=== PATIENT | male | born 1935 | race Asian ===

== ENCOUNTER 2023-09-14 23:25 | Inpatient (IN) | payer MEDICARE, OTHER, SELFPAY ==
[2023-09-02 20:52] VITALS: BMI 21.4
--- NOTE | 2023-09-14 23:26 | ED.GENADULT ---
HPI - General Adult General Chief complaint: Shortness of Breath/Dyspnea Stated complaint: dyspnea Time Seen by Provider: 09/14/23 23:26 History of Present Illness HPI narrative: 88-year-old gentleman discharged from [facility] after admission right hip fracture, hyponatremia with a history of pulmonary fibrosis aspergilloma, he is anticoagulated for his atrial fibrillation on Coumadin, hypertension, diabetes, prostate cancer he is currently in a [facility] for post hip fracture rehabilitation and presents complaining of shortness of breath. He has a productive cough with purulent sputum with hemoptysis. He is not complaining of palpitations. He has no abdominal pain has not been vomiting. Notes that his right hip post surgery is feeling well and does not complain of significant lower extremity edema Related Data Home Medications Medication Instructions Recorded Confirmed latanoprost 0.005 % eye drops 1 drp EYE-BOTH ONCE PM 09/02/23 09/02/23 metformin 1,000 mg tablet 1,000 mg PO BID 09/02/23 09/02/23 prednisone 10 mg tablet 10 mg PO DAILY 09/02/23 09/02/23 voriconazole 200 mg tablet 200 mg PO BID 09/02/23 09/02/23 Previous Rx's Medication Instructions Recorded acetaminophen 325 mg tablet 650 mg (2 x 325 mg) PO Q6H PRN 09/08/23 Fever/Mild Pain (1-3) #60 tabs apixaban 5 mg tablet (Eliquis) 5 mg PO BID #60 tabs 09/08/23 benzonatate 100 mg capsule 100 mg PO TID PRN Cough #20 caps 09/08/23 bisacodyl 5 mg tablet,delayed 5 mg PO BID PRN Constipation #1 tab 09/08/23 release docusate sodium 100 mg capsule 100 mg PO BID #14 caps 09/08/23 magnesium hydroxide 400 mg/5 mL 30 ml PO DAILY PRN Constipation 09/08/23 oral suspension (Milk of Magnesia) #90 mL polyethylene glycol 3350 17 gram 17 gm PO DAILY #14 ea 09/08/23 oral powder packet sodium chloride 1,000 mg soluble 1,000 mg PO TIDWM #90 tabs 09/08/23 tablet Allergies Allergy/AdvReac Type Severity Reaction Status Date / Time Sulfa (Sulfonamide Allergy Unknown Verified 09/02/23 21:20 Antibiotics) Review of Systems Review of Systems Narrative: Pertinent positive and negative findings as per HPI Patient History Medical History Hypertension Prostate cancer Aspergilloma Pulmonary fibrosis DM II (diabetes mellitus, type II), controlled Fracture of femoral neck, right, closed Social History household members: spouse Smoking Status: Never smoker Smoking Status: Never smoker alcohol intake frequency: 0-2 drinks per day Substance Use Type: does not use Exam Initial Vital Signs Initial Vital Signs: Vital Signs Temperature 99.1 F 09/14/23 23:33 Pulse Rate 108 H 09/14/23 23:33 Respiratory Rate 24 09/14/23 23:33 Blood Pressure 174/84 H 09/14/23 23:33 Pulse Oximetry 95 09/14/23 23:33 Oxygen Delivery Method Nasal Cannula 09/14/23 23:33 Oxygen Flow Rate 2 09/14/23 23:33 General: Frail-appearing gentleman, cough productive of bloody sputum, pale and appears acutely ill HEENT: Moist mucous membranes, normal sclera with reactive pupils, Neck: No JVD, supple Respiratory: Lungs with significant rales in all lung umaña and rhonchi worse in the right mid axillary line Cardiac: Irregular with no murmurs Abdomen: Soft, nontender, good bowel tones, no flank pain Skin: Pale, reasonable peripheral perfusion, no obvious rashes Neurologic: Grossly neurologically intact with no obvious asymmetries or abnormalities Extremities: Right hip surgical dressing in place. No significant swelling or erythema. Psych: Cooperative, appropriate insight and affect Course Orders Ordered: ED Orders 09/14/23 23:35 CT angio chest PE protocol Stat 09/15/23 00:10 Sputum Culture Stat 09/15/23 00:21 Respiratory Panel (Film Array) Stat 09/15/23 01:20 Urinalysis and Microscopic Stat 09/15/23 02:15 VBG [Venous Blood Gas] Stat Vancomycin HCl (Vancomycin) 1,000 mg in 200 mls @ 200 mls/hr IV Q24H SAVANAH Discontinued Medications Albuterol (Albuterol 2.5 Mg/3 Ml Neb (Adult)) 2.5 mg INH NOW ONE Stop: 09/14/23 23:35 Last Admin: 01/01/24 23:46 Dose: 2.5 mg Documented By: GALILEO Furosemide (Furosemide 40 Mg/4 Ml Vial) 40 mg IV NOW ONE Stop: 09/15/23 03:49 Last Admin: 09/15/23 03:54 Dose: 40 mg Documented By: BHAVANA Cefepime HCl 2 gm/ Sodium (Chloride) 100 mls @ 200 mls/hr IV NOW ONE Stop: 09/15/23 02:14 Last Infusion: 09/15/23 03:09 Dose: Infused Documented By: Admin: 09/15/23 02:29 Dose: 200 mls/hr Documented By: INES Vancomycin HCl/Dextrose (Vancomycin) 1,500 mg in 300 mls @ 200 mls/hr IV NOW ONE Stop: 09/15/23 04:29 Last Admin: 09/15/23 03:10 Dose: 200 mls/hr Documented By: BHAVANA Vancomycin HCl (Vancomycin Per Pharmacy) 1 request MISC NOW ONE Stop: 09/15/23 02:15 Vital Signs Vital signs: Vital Signs - 8 hr 09/14/23 23:33 09/14/23 23:33 09/14/23 23:34 Temperature 99.1 F Pulse Rate 108 H 104 H Respiratory Rate 24 Blood Pressure 174/84 H 174/84 H Pulse Oximetry 95 94 Oxygen Delivery Method Nasal Cannula Nasal Cannula Oxygen Flow Rate 2 3 09/14/23 23:34 09/14/23 23:46 09/15/23 00:00 Temperature Pulse Rate 98 H Respiratory Rate 33 H Blood Pressure 166/92 H Pulse Oximetry 94 92 Oxygen Delivery Method Nasal Cannula Nasal Cannula Oxygen Flow Rate 3 3 09/15/23 00:00 09/15/23 00:30 09/15/23 00:30 Temperature Pulse Rate 101 H 94 H Respiratory Rate 30 H 27 H Blood Pressure 152/80 H Pulse Oximetry 94 97 Oxygen Delivery Method Nasal Cannula Nasal Cannula Oxygen Flow Rate 3 3 09/15/23 01:05 09/15/23 01:06 09/15/23 01:06 Temperature Pulse Rate 90 92 H Respiratory Rate 26 H 28 H Blood Pressure 153/76 H Pulse Oximetry 97 97 Oxygen Delivery Method Nasal Cannula Nasal Cannula Oxygen Flow Rate 3 3 09/15/23 01:30 09/15/23 01:30 Temperature Pulse Rate 96 H Respiratory Rate 28 H Blood Pressure 158/83 H Pulse Oximetry 94 Oxygen Delivery Method Nasal Cannula Oxygen Flow Rate 3 Medical Decision Making Lab Data 09/14/23 00:15 09/14/23 00:15 Labs: Lab Results 09/14/23 09/14/23 09/15/23 Range/Units 00:15 23:25 01:20 WBC 13.4 H (4.5-11.0) X10^3/uL RBC 3.25 L (4.5-5.9) X10^6/uL Hgb 9.3 L (13.5-17.5) g/dL Hct 27.7 L (41-53) % MCV 85.4 (80-100) fL MCH 28.6 (26-34) PG MCHC 33.4 (30-36) % RDW 16.3 H (11.6-14.8) % Plt Count 454 H (150-400) X10^3/uL Neut % (Auto) 79.3 H (50-75) % Lymph % (Auto) 13.8 L (25-40) % [place] % (Auto) 5.3 (3-14) % Eos % (Auto) 1.3 L (2-4) % Baso % (Auto) 0.3 (0-2) % Neut # (Auto) 91570 H (0577-7465) /uL Lymph # (Auto) 1800 (6021-5042) /uL [place] # (Auto) 700 (0-900) /uL Eos # (Auto) 200 (0-450) /uL Baso # (Auto) 0 (0-100) /uL VBG pH (7.33-7.43) VBG pCO2 (45-50) mmHg VBG pO2 (35-45) mmHg VBG HCO3 (24-28) mmol/L VBG Total CO2 (24-29) mmol/L VBG O2 Saturation (70-75) % VBG Base Excess (0-4) mmol/L FiO2 Sodium 132 L (137-145) mmol/L Potassium 3.8 (3.4-5.1) mmol/L Chloride 100 (98-107) mmol/L Carbon Dioxide 23 (22-32) mmol/L BUN 20 (9-20) mg/dL Creatinine 0.76 (0.66-1.25) mg/dL Estimated GFR > 60 (>60) mL/min BUN/Creatinine Ratio 26.3 H (6-22) Glucose 188 H (80-110) mg/dL Lactate 1.8 (0.7-2.1) mmol/L Calcium 8.4 (8.4-10.2) mg/dL Magnesium 1.8 (1.6-2.3) mg/dL Total Bilirubin 0.6 (0.2-1.3) mg/dL ALT 26 (<50) IU/L Alkaline Phosphatase 170 H (38-126) U/L Troponin I < 0.012 (0.01-0.034) ng/mL NT-Pro-B Natriuret Pep 3860 H (<450) pg/mL Total Protein 6.7 (6.3-8.2) g/dL Albumin 3.2 L (3.5-5.0) g/dL Globulin 3.5 (1.7-4.1) g/dL Albumin/Globulin Ratio 0.9 L (1.0-2.8) Procalcitonin 0.06 (<0.5) ng/mL Urine Color Yellow Urine Appearance Clear Urine pH 5.5 (4.5-8.0) Ur Specific [place] >=1.030 H (1.000-1.035) Urine Protein 2+ H (Negative) Urine Glucose (UA) Negative (Negative) g/dL Urine Ketones Negative (NEGATIVE) Urine Occult Blood Trace-intact (Negative) Urine Nitrate Negative (Negative) Urine Bilirubin Negative (NEGATIVE) Urine Urobilinogen 0.2 (0.2) E.U./dL Ur Leukocyte Esterase Negative (NEGATIVE) Urine RBC 0-1/hpf D (0-5/HPF) Urine WBC None seen (0-5/HPF) Ur Squamous Epith Cells None seen (0-5/HPF) Urine Bacteria None seen (None) Ur Culture Indicated? Cult not indicated Chlamy pneumoniae PCR Not detected (Not Detect) Adenovirus (PCR) Not detected (Not Detect) B.parapertussis DNA PCR Not detected (Not Detecte) Coronavirus OC43 (PCR) Not detected (Not Detect) Coronavirus HKU1 (PCR) Not detected (Not Detect) Coronavirus 229E (PCR) Not detected (Not Detect) SARS-CoV-2 (PCR) Not detected (Not Detecte) Coronavirus NL63 (PCR) Not detected (Not Detect) Human Metapneumovir PCR Not detected (Not Detect) Influenza Type A (PCR) Not detected (Not Detect) Influenza Type B (PCR) Not detected (Not Detect) M. pneumoniae (PCR) Not detected (Not Detect) Parainfluenza 1 (PCR) Not detected (Not Detect) Parainfluenza 2 (PCR) Not detected (Not Detect) Parainfluenza 3 (PCR) Not detected (Not Detect) Parainfluenza 4 (PCR) Not detected (Not Detect) RSV (PCR) Not detected (Not Detect) Entero/Rhino (PCR) Not detected (Not Detect) 09/15/23 Range/Units 02:15 WBC (4.5-11.0) X10^3/uL RBC (4.5-5.9) X10^6/uL Hgb (13.5-17.5) g/dL Hct (41-53) % MCV (80-100) fL MCH (26-34) PG MCHC (30-36) % RDW (11.6-14.8) % Plt Count (150-400) X10^3/uL Neut % (Auto) (50-75) % Lymph % (Auto) (25-40) % [place] % (Auto) (3-14) % Eos % (Auto) (2-4) % Baso % (Auto) (0-2) % Neut # (Auto) (3898-8219) /uL Lymph # (Auto) (0135-4438) /uL [place] # (Auto) (0-900) /uL Eos # (Auto) (0-450) /uL Baso # (Auto) (0-100) /uL VBG pH 7.42 (7.33-7.43) VBG pCO2 33.1 L (45-50) mmHg VBG pO2 38 (35-45) mmHg VBG HCO3 21 L (24-28) mmol/L VBG Total CO2 22 L (24-29) mmol/L VBG O2 Saturation 73 (70-75) % VBG Base Excess -3.0 L (0-4) mmol/L FiO2 32 Sodium (137-145) mmol/L Potassium (3.4-5.1) mmol/L Chloride (98-107) mmol/L Carbon Dioxide (22-32) mmol/L BUN (9-20) mg/dL Creatinine (0.66-1.25) mg/dL Estimated GFR (>60) mL/min BUN/Creatinine Ratio (6-22) Glucose (80-110) mg/dL Lactate (0.7-2.1) mmol/L Calcium (8.4-10.2) mg/dL Magnesium (1.6-2.3) mg/dL Total Bilirubin (0.2-1.3) mg/dL ALT (<50) IU/L Alkaline Phosphatase (38-126) U/L Troponin I (0.01-0.034) ng/mL NT-Pro-B Natriuret Pep (<450) pg/mL Total Protein (6.3-8.2) g/dL Albumin (3.5-5.0) g/dL Globulin (1.7-4.1) g/dL Albumin/Globulin Ratio (1.0-2.8) Procalcitonin (<0.5) ng/mL Urine Color Urine Appearance Urine pH (4.5-8.0) Ur Specific [place] (1.000-1.035) Urine Protein (Negative) Urine Glucose (UA) (Negative) g/dL Urine Ketones (NEGATIVE) Urine Occult Blood (Negative) Urine Nitrate (Negative) Urine Bilirubin (NEGATIVE) Urine Urobilinogen (0.2) E.U./dL Ur Leukocyte Esterase (NEGATIVE) Urine RBC (0-5/HPF) Urine WBC (0-5/HPF) Ur Squamous Epith Cells (0-5/HPF) Urine Bacteria (None) Ur Culture Indicated? Chlamy pneumoniae PCR (Not Detect) Adenovirus (PCR) (Not Detect) B.parapertussis DNA PCR (Not Detecte) Coronavirus OC43 (PCR) (Not Detect) Coronavirus HKU1 (PCR) (Not Detect) Coronavirus 229E (PCR) (Not Detect) SARS-CoV-2 (PCR) (Not Detecte) Coronavirus NL63 (PCR) (Not Detect) Human Metapneumovir PCR (Not Detect) Influenza Type A (PCR) (Not Detect) Influenza Type B (PCR) (Not Detect) M. pneumoniae (PCR) (Not Detect) Parainfluenza 1 (PCR) (Not Detect) Parainfluenza 2 (PCR) (Not Detect) Parainfluenza 3 (PCR) (Not Detect) Parainfluenza 4 (PCR) (Not Detect) RSV (PCR) (Not Detect) Entero/Rhino (PCR) (Not Detect) MDM Narrative Medical decision making narrative: CC: Hemoptysis, fever, dyspnea Complicating co-morbidities: Right hip fracture post surgical repair September 02. Currently [facility]. Anticoagulated with apixaban for chronic atrial fibrillation. He was supratherapeutic with warfarin and this has been discontinued Data collected from: patient Social determinants of health that may influence the patients condition: Recent hospitalization, surgery and currently in a penitentiary facility Medical records reviewed: Discharge summary from hospitalization from 09/04/2012 25 is reviewed Differential considered: Pneumonia, pneumothorax, pulmonary embolism, acute coronary syndrome Exam documented above, pertinent findings include: Frail and ill but not acutely toxic gentleman, rales i throughout all lung umaña consistent with his known pulmonary fibrosis rhonchi in right lung umaña. No JVD, no lower extremity edema, right hip surgical site is clean and dry Lab Test results independently reviewed as above. Pertinent findings: CBC is notable for a leukocytosis at 13.4 with 79% neutrophils. Slight drop in hematocrit with hemoglobin at 9.3 and hematocrit 27.7. Discharge H&H on the 03/03 was 10.2 and 30.3 Chemistries show normal renal function BNP is slightly elevated at 3860 Urine is unremarkable Serologies shows no viral pathogen Sputum g stain shows occasional white cells Gram-positive cocci +1 and Gram-negative rods +1 sputum culture is pending lactic acid 1.8 Venous blood gas shows pH of 7.415 and a CO2 of 33 bicarb is 21 Independently reviewed EKG: Atrial fibrillation at a rate of 93, PVCs, no acute ST abnormalities to suggest ischemia Imaging studies independently reviewed: CT angiogram done indicates no pulmonary embolism, confirms pulmonary fibrosis with concern for developing bacterial infiltrate in the right upper lobe. Consultations: Discussed with , hospitalist Treatments: Because he is recently been hospitalized and is a [facility]it[facility]iary facility he started on cefepime and vancomycin for presumed hospital-acquired pneumonia. He will be given 40 mg of Lasix with presumed volume overload secondary to mild congestive heart failure. We will discuss continuation of his anti fungal medications with the admitting hospitalist. Discussion: 88-year-old gentleman with recent hip surgery currently to [facility]it[facility] facility now with cough hypoxia and hemoptysis. CT angiogram does not show pulmonary embolism but does show mild interstitial fullness, honeycombing consistent with his pulmonary fibrosis and developing right upper lobe pneumonia. He is started on cefepime and vancomycin, Lasix is given. Surgical site is healing nicely. He is requiring 3 L of oxygen at this point, sputum has been cultured he will be admitted to the hospitalist service. At this point I do not think that his pulmonary requirements will progress to the point that he will need BiPAP or intubation within the next 12 hours and floor admission will be appropriate. Additional Information: Severe Sepsis Criteria [ x ] bacterial source of infection suspected and documented [ ] 2 SIRS Criteria met [ x ] HR >90 [ x ] RR >20 [ ] fever or hypothermia [ x ] leukocytosis/leukopenia/bandemia [ ] Evidence of at least 1 organ system dysfunction [ ] Lactate > 2 [ ] BP < 90 or MAP <65, >40mm decrease from normal baseline [ ] Creat > 2.0 [ ] T. Bili > 2.0 [ ] platelet count < 100k [ ] altered mental status [ ] mechanical ventilation [ ] provider documentation of severe sepsis Severe Sepsis Determination. the patient has been screened and [ ] DOES meet criteria for severe sepsis [ x ] DOES NOT meet criteria for severe sepsis Goal directed treatment Within 3 hours [ x ] blood cx drawn prior to abx [ x ] broad spectrum abx started [ x] lactic acid level checked [ ] lactic redrawn within 6 hours if >2.0 Septic Shock Criteria [ ] lactic > 4 at any time [ ] SBP ,90 or MAP , 65 [ ] documentation of septic shock Time Septic Shock diagnosed: [ ] Septic Shock Determination. the patient has been screened and [ ] DOES meet criteria for septic shock [ x] DOES NOT meet criteria for septic shock Goal directed therapy within 3 hours of septic shock or initial hypotension [ ] 30ml/kg fluid [ ] ABW used [ ] IBW (33.6) used due to BMI > 30 [ ] patient or advocate declining fluid administration after shared decision making conversation Clinical reason for NOT initiating fluid bolus: Within 6 hours (if continued hypotension after fluids or initial lactate >4) [ ] repeat volume status and tissue perfusion assessment documented after fluid bolus was completed at [Date/Time] Must include vital signs, cardiopulmonary exam, capillary refill, peripheral pulse evaluation, skin exam [ ] Initiate vasopressor therapy if persistent hypotension after adequate fluid bolus Discharge Plan Departure Patient Disposition: Admitted As Inpatient Clinical Impression: HAP (hospital-acquired pneumonia) Congestive heart failure Qualifiers: Heart failure type: unspecified Heart failure chronicity: unspecified Qualified Code(s): I50.9 - Heart failure, unspecified Sepsis Qualifiers: Sepsis type: sepsis due to unspecified organism Sepsis acute organ dysfunction status: without acute organ dysfunction Qualified Code(s): A41.9 - Sepsis, unspecified organism
[2023-09-14 23:33] VITALS: BP 174/84; PULSE 104; PULSE 108; RESP 24; TEMP 37.3; O2SAT 94; O2SAT 95
[2023-09-14 23:34] VITALS: BP 174/84; PULSE 98; RESP 33; O2SAT 94
--- NOTE | 2023-09-14 23:35 | DI.CT.S_ITS ---
PROCEDURE: CT ANGIO CHEST PE PROTOCOL INDICATIONS: 1 wk post op, resp distress TECHNIQUE: After the administration of intravenous contrast, 2 mm thick sections acquired from the pulmonary apices to the posterior costophrenic angles. 3-dimensional maximum intensity projection (MIP) coronal and sagittal reformats were then acquired through the thorax. For radiation dose reduction, the following was used: automated exposure control, adjustment of mA and/or kV according to patient size. COMPARISON: None available at the time of dictation.. FINDINGS: Image quality: Diagnostic. Pulmonary arteries: Pulmonary pulmonary arteries dilated measuring 4 centimeters. No intraluminal filling defects to suggest central pulmonary embolism. Bilateral lower lobe pulmonary arteries are not well visualized secondary to motion. Lower Neck: No enlarged lymph nodes. Thyroid: Not well evaluated signal streak artifact. Axillae: No enlarged lymph nodes. Chest Wall: Unremarkable. Bones: Degenerative changes of the spine. Lungs and Pleura: Ground-glass and consolidative opacities involving the bilateral upper lobes, right greater than left and right lower lobe. Extensive honeycombing is noted , predominantly involving the bilateral lower lobes. Small bilateral pleural effusions. Right lower lobe pulmonary nodule measuring 10 millimeters (5/159). Additional 10 millimeter right lower lobe pulmonary nodule (5/179). Heart: Heart size is enlarged. Severe coronary artery calcifications. Reflux of contrast into the IVC, may represent elevated right heart pressures. No pericardial effusion. Thoracic Vessels: Ascending thoracic aorta is dilated at 4.4 centimeters. Extensive atherosclerotic vascular calcifications.. Mediastinum and Ana: Multiple prominent enlarged lymph nodes throughout the mediastinum and ana. Esophagus: No wall thickening. No hiatal hernia. Upper Abdomen: Visualized upper abdomen solid organs and bowel loops appear normal. IMPRESSION: 1. No definite pulmonary embolism is seen. However motion artifact limits evaluation. Opacification of bilateral lower lobe pulmonary arteries is not well appreciated, however this is favored to be secondary to artifact. 2. Consolidative and ground-glass opacities bilaterally, most pronounced within the right upper lobe, consistent with pneumonia. Small bilateral pleural effusions. 3. Right lower lobe pulmonary nodules versus consolidations measuring up to 10 millimeters. Recommend 3 month follow-up CT chest to determine stability or resolution. 4. Pulmonary fibrotic changes with extensive honeycombing most pronounced in the lower lobes. 5. Cardiomegaly with severe multivessel coronary artery calcifications. 6. 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 7. Dilated main pulmonary artery suggestive of pulmonary hypertension. Dictated by: Christopher Pulliam M.D. on 09/15/2023 at 1:18 Approved by: Christopher Pulliam M.D. on 09/15/2023 at 1:28
[2023-09-14 23:46] VITALS: O2SAT 92
[2023-09-14] MEDS: ALBUTEROL 2.5 MG/3 ML NEB (ADULT) INH (23:46)
[2023-09-15] VITALS (19 sets, daily range): BP systolic 130–191; BP diastolic 70–93; PULSE 88–117; RESP 18–59; TEMP 36.2; O2SAT 90–98; BMI 20.5
[2023-09-15 00:36] LABS: Lactate (Lactic Acid) 1.8 mmol/L (0.7-2.1)
[2023-09-15 00:37] LABS: Alanine Aminotransferase 26 IU/L (<50); Albumin 3.2 g/dL (3.5-5.0); Albumin Globulin Ratio 0.9 (1.0-2.8); Alkaline Phosphatase 170 U/L (38-126); BUN Creatinine Ratio 26.3 (6-22); Bilirubin Total 0.6 mg/dL (0.2-1.3); Blood Urea Nitrogen 20 mg/dL (9-20); Calcium 8.4 mg/dL (8.4-10.2); Carbon Dioxide 23 mmol/L (22-32); Chloride 100 mmol/L (98-107); Estimated Glomerular Filt Rate > 60 mL/min (>60); Globulin 3.5 g/dL (1.7-4.1); Glucose 188 mg/dL (80-110); HEMOLYSIS < 15 (0-50); Magnesium 1.8 mg/dL (1.6-2.3); Potassium 3.8 mmol/L (3.4-5.1); Sodium 132 mmol/L (137-145); Total Protein 6.7 g/dL (6.3-8.2)
[2023-09-15 00:46] LABS: Add Manual Diff / Slide Review NO; Basophils Absolute Auto 0 /uL (0-100); Basophils Percent Auto 0.3 % (0-2); Eosinophils Absolute Auto 200 /uL (0-450); Eosinophils Percent Auto 1.3 % (2-4); Hematocrit 27.7 % (41-53); Hemoglobin 9.3 g/dL (13.5-17.5); Lymphocytes Absolute Auto 1800 /uL (1100-4500); Lymphocytes Percent Auto 13.8 % (25-40); Mean Corpuscular HGB Conc 33.4 % (30-36); Mean Corpuscular Hemoglobin 28.6 PG (26-34); Mean Corpuscular Volume 85.4 fL (80-100); Monocytes Absolute Auto 700 /uL (0-900); Monocytes Percent Auto 5.3 % (3-14); Neutrophils Absolute Auto 10600 /uL (1500-7000); Neutrophils Percent Auto 79.3 % (50-75); Platelet Count 454 X10^3/uL (150-400); Red Blood Cell Count 3.25 X10^6/uL (4.5-5.9); Red Cell Distribution Width 16.3 % (11.6-14.8); White Blood Cell Count 13.4 X10^3/uL (4.5-11.0)
[2023-09-15 00:49] LABS: NT-proBNP (BNP-Adult 18+) 3860 pg/mL (<450); Troponin I < 0.012 ng/mL (0.01-0.034)
[2023-09-15 00:54] LABS: Procalcitonin 0.06 ng/mL (<0.5)
[2023-09-15 01:12] LABS: Adenovirus Not Detected (Not Detect); B. parapertussis Not Detected (Not Detecte); Bordetella pertussis Not Detected (Not Detect); Chlamydophila pneumoniae Not Detected (Not Detect); Coronavirus 229E Not Detected (Not Detect); Coronavirus HKU1 Not Detected (Not Detect); Coronavirus NL 63 Not Detected (Not Detect); Coronavirus OC43 Not Detected (Not Detect); Human Metapneumovirus Not Detected (Not Detect); Human Rhinovirus/Enterovirus Not Detected (Not Detect); Influenza A Not Detected (Not Detect); Influenza B Not Detected (Not Detect); Mycoplasma pneumoniae Not Detected (Not Detect); Parainfluenza Virus 1 Not Detected (Not Detect); Parainfluenza Virus 2 Not Detected (Not Detect); Parainfluenza Virus 3 Not Detected (Not Detect); Parainfluenza Virus 4 Not Detected (Not Detect); Respiratory Syncytial Virus Not Detected (Not Detect); SARS- CoV-2 Not Detected (Not Detecte)
[2023-09-15 01:56] LABS: Appearance Urine UA CLEAR; Bilirubin Urine UA NEGATIVE (NEGATIVE); Color Urine UA YELLOW; Glucose Urine UA NEGATIVE (Negative); Ketones Urine UA NEGATIVE (NEGATIVE); Leukocyte Esterase Urine UA NEGATIVE (NEGATIVE); Nitrite Urine UA NEGATIVE (Negative); Occult Blood Urine UA TRACE-INTACT (Negative); Protein Urine UA 2+ (Negative); Specific Gravity Urine UA >=1.030 (1.000-1.035); Urobilinogen Urine UA 0.2 E.U./dL (0.2); pH Urine UA 5.5 (4.5-8.0)
[2023-09-15 02:08] LABS: Bacteria Urine None Seen; Culture Indicated Urine Cult Not Indicated; RBC Urine 0-1/HPF (0-5/HPF); Squamous Epithelial Cell Urine None Seen (0-5/HPF); WBC Urine None Seen (0-5/HPF)
[2023-09-15] MEDS: CEFEPIME 2 GM in SODIUM CHLORIDE 0.9% 100 ML IV (02:29)
[2023-09-15 02:34] LABS: HCO3 VBG 21 mmol/L (24-28); Oxygen Saturation VBG 73 % (70-75); PCO2 VBG 33.1 mmHg (45-50); PO2 VBG 38 mmHg (35-45); Total CO2 VBG 22 mmol/L (24-29); pH VBG 7.42 (7.33-7.43)
[2023-09-15 02:35] LABS: Fractionated Inspired Oxygen 32
[2023-09-15] MEDS: VANCOMYCIN 1,500 MG/300 ML PIGGYBACK 200 MG IV (03:10)
[2023-09-15] MEDS: FUROSEMIDE 40 MG/4 ML VIAL IV (03:54)
--- NOTE | 2023-09-15 04:51 | P.HP_ITS ---
History of Present Illness History of Present Illness Date Patient Seen: 09/15/23 Chief complaint: dyspnea Narrative: 88 y/o presented to ED from SNF with shortness of breath and e idence of PNA. He was recently hospitalized for Rt hip fracture, s/p ORIF and was discharged to SNF for rehab few days ago. Additional medical history of ILD, aspergilloma, A-fib, HTN, DM. [facility], LAT[facility] Medical History (Updated 09/15/23 @ 07:01 by Feliz Zimmerman MD) DM II (diabetes mellitus, type II), controlled Hypertension Prostate cancer Aspergilloma Pulmonary fibrosis Fracture of femoral neck, right, closed Social History household members: spouse and children Smoking Status: Never smoker Meds Home Medications and Allergies Home Medications Medication Instructions Recorded Confirmed Type latanoprost 0.005 % eye drops 1 drp EYE-BOTH ONCE PM 09/02/23 09/15/23 History metformin 1,000 mg tablet 1,000 mg PO BID 09/02/23 09/15/23 History prednisone 10 mg tablet 10 mg PO DAILY 09/02/23 09/15/23 History voriconazole 200 mg tablet 200 mg PO BID 09/02/23 09/15/23 History acetaminophen 325 mg tablet 650 mg (2 x 325 mg) PO Q6H PRN 09/08/23 09/15/23 Rx Fever/Mild Pain (1-3) #60 tabs apixaban 5 mg tablet (Eliquis) 5 mg PO BID #60 tabs 09/08/23 09/15/23 Rx benzonatate 100 mg capsule 100 mg PO TID PRN Cough #20 caps 09/08/23 09/15/23 Rx bisacodyl 5 mg tablet,delayed 5 mg PO BID PRN Constipation #1 tab 09/08/23 09/15/23 Rx release docusate sodium 100 mg capsule 100 mg PO BID #14 caps 09/08/23 09/15/23 Rx magnesium hydroxide 400 mg/5 mL 30 ml PO DAILY PRN Constipation 09/08/23 09/15/23 Rx oral suspension (Milk of Magnesia) #90 mL polyethylene glycol 3350 17 gram 17 gm PO DAILY #14 ea 09/08/23 09/15/23 Rx oral powder packet sodium chloride 1,000 mg soluble 1,000 mg PO TIDWM #90 tabs 09/08/23 09/15/23 Rx tablet Allergies Allergy/AdvReac Type Severity Reaction Status Date / Time Sulfa (Sulfonamide Allergy Unknown Verified 09/02/23 21:20 Antibiotics) Review of Systems Review of Systems Narrative: unable to take part in ROS, very weak, sleepy, he denied chest pain and confirmed shortness of breath Exam Vital Signs (past 8 hours): - 09/14/23 23:33 09/14/23 23:33 09/14/23 23:34 Temperature 99.1 F Pulse Rate 108 H 104 H Respiratory Rate 24 Blood Pressure 174/84 H 174/84 H Pulse Oximetry 95 94 Oxygen Delivery Method Nasal Cannula Nasal Cannula Oxygen Flow Rate 2 3 09/14/23 23:34 09/14/23 23:46 09/15/23 00:00 Temperature Pulse Rate 98 H Respiratory Rate 33 H Blood Pressure 166/92 H Pulse Oximetry 94 92 Oxygen Delivery Method Nasal Cannula Nasal Cannula Oxygen Flow Rate 3 3 09/15/23 00:00 09/15/23 00:30 09/15/23 00:30 Temperature Pulse Rate 101 H 94 H Respiratory Rate 30 H 27 H Blood Pressure 152/80 H Pulse Oximetry 94 97 Oxygen Delivery Method Nasal Cannula Nasal Cannula Oxygen Flow Rate 3 3 09/15/23 01:05 09/15/23 01:06 09/15/23 01:06 Temperature Pulse Rate 90 92 H Respiratory Rate 26 H 28 H Blood Pressure 153/76 H Pulse Oximetry 97 97 Oxygen Delivery Method Nasal Cannula Nasal Cannula Oxygen Flow Rate 3 3 09/15/23 01:30 09/15/23 01:30 Temperature Pulse Rate 96 H Respiratory Rate 28 H Blood Pressure 158/83 H Pulse Oximetry 94 Oxygen Delivery Method Nasal Cannula Oxygen Flow Rate 3 Oxygen Delivery Method Nasal Cannula Oxygen Flow Rate 3 Narrative Exam Narrative: elderly patient, laying in bed in no distress Resp Other: tachyoneic, coarse b/l Cardio Other: irregular GI Other: w/o abdominal distention Skin Other: pale Psych Other: encephalopathic Objective Labs 09/14/23 00:15 09/14/23 00:15 Labs: Laboratory Results - last 24 hr 09/14/23 09/14/23 09/15/23 00:15 23:25 01:20 WBC 13.4 H RBC 3.25 L Hgb 9.3 L Hct 27.7 L MCV 85.4 MCH 28.6 MCHC 33.4 RDW 16.3 H Plt Count 454 H Neut % (Auto) 79.3 H Lymph % (Auto) 13.8 L [place] % (Auto) 5.3 Eos % (Auto) 1.3 L Baso % (Auto) 0.3 Neut # (Auto) 89414 H Lymph # (Auto) 1800 [place] # (Auto) 700 Eos # (Auto) 200 Baso # (Auto) 0 VBG pH VBG pCO2 VBG pO2 VBG HCO3 VBG Total CO2 VBG O2 Saturation VBG Base Excess FiO2 Sodium 132 L Potassium 3.8 Chloride 100 Carbon Dioxide 23 BUN 20 Creatinine 0.76 Estimated GFR > 60 BUN/Creatinine Ratio 26.3 H Glucose 188 H Lactate 1.8 Calcium 8.4 Magnesium 1.8 Total Bilirubin 0.6 ALT 26 Alkaline Phosphatase 170 H Troponin I < 0.012 NT-Pro-B Natriuret Pep 3860 H Total Protein 6.7 Albumin 3.2 L Globulin 3.5 Albumin/Globulin Ratio 0.9 L Procalcitonin 0.06 Urine Color Yellow Urine Appearance Clear Urine pH 5.5 Ur Specific [place] >=1.030 H Urine Protein 2+ H Urine Glucose (UA) Negative Urine Ketones Negative Urine Occult Blood Trace-intact Urine Nitrate Negative Urine Bilirubin Negative Urine Urobilinogen 0.2 Ur Leukocyte Esterase Negative Urine RBC 0-1/hpf D Urine WBC None seen Ur Squamous Epith Cells None seen Urine Bacteria None seen Ur Culture Indicated? Cult not indicated Chlamy pneumoniae PCR Not detected Adenovirus (PCR) Not detected B.parapertussis DNA PCR Not detected Coronavirus OC43 (PCR) Not detected Coronavirus HKU1 (PCR) Not detected Coronavirus 229E (PCR) Not detected SARS-CoV-2 (PCR) Not detected Coronavirus NL63 (PCR) Not detected Human Metapneumovir PCR Not detected Influenza Type A (PCR) Not detected Influenza Type B (PCR) Not detected M. pneumoniae (PCR) Not detected Parainfluenza 1 (PCR) Not detected Parainfluenza 2 (PCR) Not detected Parainfluenza 3 (PCR) Not detected Parainfluenza 4 (PCR) Not detected RSV (PCR) Not detected Entero/Rhino (PCR) Not detected 09/15/23 02:15 WBC RBC Hgb Hct MCV MCH MCHC RDW Plt Count Neut % (Auto) Lymph % (Auto) [place] % (Auto) Eos % (Auto) Baso % (Auto) Neut # (Auto) Lymph # (Auto) [place] # (Auto) Eos # (Auto) Baso # (Auto) VBG pH 7.42 VBG pCO2 33.1 L VBG pO2 38 VBG HCO3 21 L VBG Total CO2 22 L VBG O2 Saturation 73 VBG Base Excess -3.0 L FiO2 32 Sodium Potassium Chloride Carbon Dioxide BUN Creatinine Estimated GFR BUN/Creatinine Ratio Glucose Lactate Calcium Magnesium Total Bilirubin ALT Alkaline Phosphatase Troponin I NT-Pro-B Natriuret Pep Total Protein Albumin Globulin Albumin/Globulin Ratio Procalcitonin Urine Color Urine Appearance Urine pH Ur Specific [place] Urine Protein Urine Glucose (UA) Urine Ketones Urine Occult Blood Urine Nitrate Urine Bilirubin Urine Urobilinogen Ur Leukocyte Esterase Urine RBC Urine WBC Ur Squamous Epith Cells Urine Bacteria Ur Culture Indicated? Chlamy pneumoniae PCR Adenovirus (PCR) B.parapertussis DNA PCR Coronavirus OC43 (PCR) Coronavirus HKU1 (PCR) Coronavirus 229E (PCR) SARS-CoV-2 (PCR) Coronavirus NL63 (PCR) Human Metapneumovir PCR Influenza Type A (PCR) Influenza Type B (PCR) M. pneumoniae (PCR) Parainfluenza 1 (PCR) Parainfluenza 2 (PCR) Parainfluenza 3 (PCR) Parainfluenza 4 (PCR) RSV (PCR) Entero/Rhino (PCR) Assessment & Plan Assessment and plan (1) HAP (hospital-acquired pneumonia): Status: Acute Plan: Cefepime / Vancomycin Cultures pending (2) Hyponatremia: Status: Acute Plan: 2nd to PNA (3) Acute hypoxemic respiratory failure: Status: Acute Plan: oxygen as needed (4) Pulmonary fibrosis: Status: Acute Plan: follow up with pulmonology (5) Aspergilloma: Problem details: voriconizole Status: Acute Plan: Voriconazole (6) DM II (diabetes mellitus, type II), controlled: Qualifiers: Diabetes mellitus skilled nursing insulin use: without skilled nursing use Diabetes mellitus complication status: without complication Qualified Code(s): E11.9 - Type 2 diabetes mellitus without complications Status: Acute Plan: metformin, SS (7) Prostate cancer: Problem details: On Lupron Status: Acute Plan: Hx of, Tx with Lupron (8) Congestive heart failure: Qualifiers: Heart failure chronicity: unspecified Heart failure type: unspecified Qualified Code(s): I50.9 - Heart failure, unspecified Status: Acute Plan: Is and Os, daily weights
--- NOTE | 2023-09-15 06:47 | PC.NURSE ---
Patient admitted to room 215 for Pneumonia, had a recent right hip surgery came from [facility]. Had a baseline dementia & recent fall. Difficult to get an accurate health & home medications information. Oriented to his room, call light with in reached & encouraged to get some assistance if he needed to get OOB. Bed alarm activated, will monitor & cont. POC.
[2023-09-15] MEDS: APIXABAN 5 MG TABLET PO ×2 (09:05→20:56)
[2023-09-15] MEDS: METFORMIN HCL 500 MG TABLET 1000 MG PO ×2 (09:05→20:51)
[2023-09-15] MEDS: VORICONAZOLE 200 MG TABLET PO ×2 (09:05→20:51)
[2023-09-15] MEDS: INSULIN LISPRO 100 UNIT/ML 3ML VIAL SUBCUT ×3 (09:06→17:14)
--- NOTE | 2023-09-15 10:57 | PM.HP.1 ---
History of Present Illness History of Present Illness Date Patient Seen: 09/15/23 Time Patient Seen: 10:58 Date of Onset of Symptoms: 10/15/23 Chief complaint: dyspnea Narrative: The patient is an 88-year-old male with a history of interstitial lung disease, atrial fibrillation, hypertension, and diabetes who [facility] with dyspnea and hypoxemia. The patient was recently transferred from this hospital to the facility after a right hip fracture and operative repair. He was there for rehab. He had been doing well until September 14 when he developed hypoxemia and some dyspnea with exertion. There has been no report of fevers, or cough. The patient was found to have infiltrates on CT scan consistent with an acute pneumonia. The patient was started on IV antibiotics in the emergency department. The patient denies any chest pain, nausea or vomiting. [facility], [facility] Medical History (Updated 09/15/23 @ 07:01 by Feliz Zimmerman MD) DM II (diabetes mellitus, type II), controlled Hypertension Prostate cancer Aspergilloma Pulmonary fibrosis Fracture of femoral neck, right, closed Social History household members: spouse and children Smoking Status: Never smoker Meds Home Medications and Allergies Home Medications Medication Instructions Recorded Confirmed Type latanoprost 0.005 % eye drops 1 drp EYE-BOTH ONCE PM 09/02/23 09/15/23 History metformin 1,000 mg tablet 1,000 mg PO BID 09/02/23 09/15/23 History prednisone 10 mg tablet 10 mg PO DAILY 09/02/23 09/15/23 History voriconazole 200 mg tablet 200 mg PO BID 09/02/23 09/15/23 History acetaminophen 325 mg tablet 650 mg (2 x 325 mg) PO Q6H PRN 09/08/23 09/15/23 Rx Fever/Mild Pain (1-3) #60 tabs apixaban 5 mg tablet (Eliquis) 5 mg PO BID #60 tabs 09/08/23 09/15/23 Rx benzonatate 100 mg capsule 100 mg PO TID PRN Cough #20 caps 09/08/23 09/15/23 Rx bisacodyl 5 mg tablet,delayed 5 mg PO BID PRN Constipation #1 tab 09/08/23 09/15/23 Rx release docusate sodium 100 mg capsule 100 mg PO BID #14 caps 09/08/23 09/15/23 Rx magnesium hydroxide 400 mg/5 mL 30 ml PO DAILY PRN Constipation 09/08/23 09/15/23 Rx oral suspension (Milk of Magnesia) #90 mL polyethylene glycol 3350 17 gram 17 gm PO DAILY #14 ea 09/08/23 09/15/23 Rx oral powder packet sodium chloride 1,000 mg soluble 1,000 mg PO TIDWM #90 tabs 09/08/23 09/15/23 Rx tablet Allergies Allergy/AdvReac Type Severity Reaction Status Date / Time Sulfa (Sulfonamide Allergy Unknown Verified 09/02/23 21:20 Antibiotics) Review of Systems Review of Systems Narrative: All else reviewed and otherwise noncontributory. Exam Vital Signs (past 8 hours): - 09/15/23 03:00 09/15/23 03:00 09/15/23 03:30 Temperature Pulse Rate 117 H 93 H Respiratory Rate 59 H 28 H Blood Pressure 191/93 H Pulse Oximetry 95 Oxygen Delivery Method Nasal Cannula Oxygen Flow Rate 3 09/15/23 03:30 09/15/23 04:00 09/15/23 04:00 Temperature Pulse Rate 96 H Respiratory Rate 40 H Blood Pressure 146/81 H 156/79 H Pulse Oximetry 95 Oxygen Delivery Method Nasal Cannula Oxygen Flow Rate 3 09/15/23 04:30 09/15/23 04:30 09/15/23 05:00 Temperature Pulse Rate 103 H Respiratory Rate 53 H Blood Pressure 151/73 H 146/70 H Pulse Oximetry 97 Oxygen Delivery Method Nasal Cannula Oxygen Flow Rate 3 09/15/23 05:00 09/15/23 05:35 09/15/23 08:00 Temperature 97.1 F L Pulse Rate 92 H 108 H 88 Respiratory Rate 37 H 18 18 Blood Pressure 152/90 H 130/79 Pulse Oximetry 98 96 98 Oxygen Delivery Method Nasal Cannula Oxygen Flow Rate 3 3 2 09/15/23 08:00 09/15/23 09:15 Temperature Pulse Rate Respiratory Rate Blood Pressure Pulse Oximetry 96 97 Oxygen Delivery Method Nasal Cannula Nasal Cannula Oxygen Flow Rate 2 2 Oxygen Delivery Method Nasal Cannula Oxygen Flow Rate 2 Narrative Exam Narrative: No acute distress, fluent speech. Normocephalic skull, symmetric pupils. Neck is supple, normal JVP. The patient has midline trachea. The lungs are notable for scattered rhonchi, normal rate and effort. The heart is irregular, no murmur. The abdomen is soft, nontender and nondistended. There is no leg edema. Skin is free rash or lesions, the surgical wound is unremarkable. Dressing was changed by nursing. There are no deformities of the joints. There is no obvious adenopathy. Objective Imaging CT scan - chest: Radiologist's impression: 1. No definite pulmonary embolism is seen. However motion artifact limits evaluation. Opacification of bilateral lower lobe pulmonary arteries is not well appreciated, however this is favored to be secondary to artifact. 2. Consolidative and ground-glass opacities bilaterally, most pronounced within the right upper lobe, consistent with pneumonia. Small bilateral pleural effusions. 3. Right lower lobe pulmonary nodules versus consolidations measuring up to 10 millimeters. Recommend 3 month follow-up CT chest to determine stability or resolution. 4. Pulmonary fibrotic changes with extensive honeycombing most pronounced in the lower lobes. 5. Cardiomegaly with severe multivessel coronary artery calcifications. 6. 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 7. Dilated main pulmonary artery suggestive of pulmonary hypertension. Labs 09/14/23 00:15 09/14/23 00:15 Labs: Laboratory Results - last 24 hr 09/14/23 09/14/23 09/15/23 00:15 23:25 01:20 WBC 13.4 H RBC 3.25 L Hgb 9.3 L Hct 27.7 L MCV 85.4 MCH 28.6 MCHC 33.4 RDW 16.3 H Plt Count 454 H Neut % (Auto) 79.3 H Lymph % (Auto) 13.8 L [place] % (Auto) 5.3 Eos % (Auto) 1.3 L Baso % (Auto) 0.3 Neut # (Auto) 32796 H Lymph # (Auto) 1800 [place] # (Auto) 700 Eos # (Auto) 200 Baso # (Auto) 0 VBG pH VBG pCO2 VBG pO2 VBG HCO3 VBG Total CO2 VBG O2 Saturation VBG Base Excess FiO2 Sodium 132 L Potassium 3.8 Chloride 100 Carbon Dioxide 23 BUN 20 Creatinine 0.76 Estimated GFR > 60 BUN/Creatinine Ratio 26.3 H Glucose 188 H Lactate 1.8 Calcium 8.4 Magnesium 1.8 Total Bilirubin 0.6 AST TNP ALT 26 Alkaline Phosphatase 170 H Troponin I < 0.012 NT-Pro-B Natriuret Pep 3860 H Total Protein 6.7 Albumin 3.2 L Globulin 3.5 Albumin/Globulin Ratio 0.9 L Procalcitonin 0.06 Urine Color Yellow Urine Appearance Clear Urine pH 5.5 Ur Specific [place] >=1.030 H Urine Protein 2+ H Urine Glucose (UA) Negative Urine Ketones Negative Urine Occult Blood Trace-intact Urine Nitrate Negative Urine Bilirubin Negative Urine Urobilinogen 0.2 Ur Leukocyte Esterase Negative Urine RBC 0-1/hpf D Urine WBC None seen Ur Squamous Epith Cells None seen Urine Bacteria None seen Ur Culture Indicated? Cult not indicated Chlamy pneumoniae PCR Not detected Adenovirus (PCR) Not detected B.parapertussis DNA PCR Not detected Coronavirus OC43 (PCR) Not detected Coronavirus HKU1 (PCR) Not detected Coronavirus 229E (PCR) Not detected SARS-CoV-2 (PCR) Not detected Coronavirus NL63 (PCR) Not detected Human Metapneumovir PCR Not detected Influenza Type A (PCR) Not detected Influenza Type B (PCR) Not detected M. pneumoniae (PCR) Not detected Parainfluenza 1 (PCR) Not detected Parainfluenza 2 (PCR) Not detected Parainfluenza 3 (PCR) Not detected Parainfluenza 4 (PCR) Not detected RSV (PCR) Not detected Entero/Rhino (PCR) Not detected 09/15/23 02:15 WBC RBC Hgb Hct MCV MCH MCHC RDW Plt Count Neut % (Auto) Lymph % (Auto) [place] % (Auto) Eos % (Auto) Baso % (Auto) Neut # (Auto) Lymph # (Auto) [place] # (Auto) Eos # (Auto) Baso # (Auto) VBG pH 7.42 VBG pCO2 33.1 L VBG pO2 38 VBG HCO3 21 L VBG Total CO2 22 L VBG O2 Saturation 73 VBG Base Excess -3.0 L FiO2 32 Sodium Potassium Chloride Carbon Dioxide BUN Creatinine Estimated GFR BUN/Creatinine Ratio Glucose Lactate Calcium Magnesium Total Bilirubin AST ALT Alkaline Phosphatase Troponin I NT-Pro-B Natriuret Pep Total Protein Albumin Globulin Albumin/Globulin Ratio Procalcitonin Urine Color Urine Appearance Urine pH Ur Specific [place] Urine Protein Urine Glucose (UA) Urine Ketones Urine Occult Blood Urine Nitrate Urine Bilirubin Urine Urobilinogen Ur Leukocyte Esterase Urine RBC Urine WBC Ur Squamous Epith Cells Urine Bacteria Ur Culture Indicated? Chlamy pneumoniae PCR Adenovirus (PCR) B.parapertussis DNA PCR Coronavirus OC43 (PCR) Coronavirus HKU1 (PCR) Coronavirus 229E (PCR) SARS-CoV-2 (PCR) Coronavirus NL63 (PCR) Human Metapneumovir PCR Influenza Type A (PCR) Influenza Type B (PCR) M. pneumoniae (PCR) Parainfluenza 1 (PCR) Parainfluenza 2 (PCR) Parainfluenza 3 (PCR) Parainfluenza 4 (PCR) RSV (PCR) Entero/Rhino (PCR) Assessment & Plan Assessment & Plan narrative: 1. Hospital associated pneumonia, present on admission and active. 2. Hyponatremia, present on admission and active. 3. Acute hypoxic respiratory failure, present on admission and active. 4. Chronic pulmonary fibrosis, present on admission and active. 5. Aspergilloma, present on admission and active. 6. Diabetes mellitus 2, present on admission and active. 7. Prostate cancer with history of Lupron, present on admission and active. 8. Congestive heart failure, present on admission and stable. PLAN: -continue antibiotics, cefepime and vancomycin. -wean oxygen as able. -continue physical therapy. -continue voriconazole. -continue Eliquis as patient had been converted from warfarin to Eliquis at the last discharge. -monitor blood sugars. Continue subcutaneous insulin regimen. Time Spent With Patient Time with patient: 30 to 49 minutes with 50% spent counseling/coordinating care Quality VTE Deep Vein Thrombosis/Pulmonary Embolism Present on Admission: No
--- NOTE | 2023-09-15 14:08 | CM.DANOTE ---
Initial DCP Assessment Visit Note Reviewed EMR and team rounds for pt's medical status and initial anticipated d/c needs. Met with pt just briefly to introduce self and assure him that this REPEAT PHOTOCOMPOSING MACHINE OPERATOR/team are going to help him/family with d/c needs. Called family and discussed a few options to consider once pt is medically stable. Payor: Medicare PCP: Sierra Lira Pt is a 88 year-old who was readmitted after having been discharged to [facility] on 09/08/23 following his total R-hip arthroplasty surgery. Pt was previously admitted from 09/02/23-09/08/23. He presented to to the ED on 09/14/23 with worsening cough w/bloody sputum and shortness of breath. Pt has a hx significant for interstitial lung disease, Afib, hypertension, and diabetes. CT imaging in the ED indicates acute pneumonia, most likely hospital acquired. He was started on IV ABO's and admitted for further evaluation and tx. Pt not on O2 at baseline is now on 3LO2. Plan is to continue IV ABO's, work with PT, and eventually wean O2 as able. REPEAT PHOTOCOMPOSING MACHINE OPERATOR called family to discuss their preference for d/c once pt is medically stable. Family would like for pt to d/c back to [facility] to resume rehab. DCP will follow and continue to assist pt/family with this focus, as well as with any further evolving d/c needs. Discharge Planning/Care Management CM Discharge Assessment Start: 09/15/23 14:02 Freq: Status: Active Protocol: Document 09/15/23 14:02 DPL (Rec: 09/15/23 14:08 DPL [id number]) Discharge Planning Assessment Assigned Home Health Care Worker MASSIMO Lai Advance Directives? No History Provided By Family Member,Medical Record Has Patient been admitted in last 30 Yes days? Comment 09/02/23-09/08/23 for R-total hip arthoroplasty, d/c'd to [facility] for SNF rehab. Prior Living Arrangements House Household Members spouse,children Type of transporation used prior to Relies on Others admit Facility Name Admitted From: [facility] Willing to Return to Facility? Yes Independent with ADL's Yes Is patient alert and oriented? Yes Comment Pt relies on others for transportation. Caregiver for Another No DME Already Rented / Owned [facility] / Walker Patient/Family Preference [facility] Facility Barriers to Discharge No Comment Per family, the preference is to d/c back to [facility] to continue SNF rehab. Discharge Plan [facility] Facility Community Services Physical Therapy,Occupational Therapy Transportation Arrangement Likely wheelchair van Referrals Initiated None needed Inpatient Status as of 09/14/23 Comment Pt may not need new PASSAR since it's a re-admit. Will clarify prior to pt's d/c. Whiteboard Updated in Patient Room with Yes name and ext. # of Home Health Care Worker Review Status In Process Please Provide Date Initial DC 09/15/23 Assessment Was Performed
[2023-09-15] MEDS: VANCOMYCIN 750 MG/150 ML PIGGYBACK 150 MG IV (15:13)
[2023-09-15] MEDS: SODIUM CHLORIDE 0.9% 250 ML 21 ML IV (15:26)
[2023-09-15] MEDS: CEFEPIME 1 GM in SODIUM CHLORIDE 0.9% 100 ML IV (17:10)
[2023-09-15] MEDS: SENNOSIDES 8.6 MG TABLET 17.2 MG PO (20:50)
[2023-09-16] VITALS (10 sets, daily range): BP systolic 115–136; BP diastolic 59–69; PULSE 76–91; RESP 16–22; TEMP 35.1–36.6; O2SAT 94–100
[2023-09-16] MEDS: VANCOMYCIN 750 MG/150 ML PIGGYBACK 150 MG IV ×2 (03:58→16:00)
[2023-09-16] MEDS: ACETAMINOPHEN 325 MG TABLET 650 MG PO ×3 (04:30→14:44)
[2023-09-16] MEDS: CEFEPIME 1 GM in SODIUM CHLORIDE 0.9% 100 ML IV ×2 (06:55→18:41)
[2023-09-16 08:18] LABS: Add Manual Diff / Slide Review NO; Basophils Absolute Auto 100 /uL (0-100); Basophils Percent Auto 0.6 % (0-2); Eosinophils Absolute Auto 300 /uL (0-450); Eosinophils Percent Auto 2.6 % (2-4); Hematocrit 25.8 % (41-53); Hemoglobin 8.6 g/dL (13.5-17.5); Lymphocytes Absolute Auto 1300 /uL (1100-4500); Lymphocytes Percent Auto 10.7 % (25-40); Mean Corpuscular HGB Conc 33.4 % (30-36); Mean Corpuscular Volume 84.1 fL (80-100); Monocytes Absolute Auto 600 /uL (0-900); Neutrophils Absolute Auto 9900 /uL (1500-7000); Neutrophils Percent Auto 81.1 % (50-75); Platelet Count 413 X10^3/uL (150-400); Red Blood Cell Count 3.07 X10^6/uL (4.5-5.9); Red Cell Distribution Width 16.1 % (11.6-14.8); White Blood Cell Count 12.2 X10^3/uL (4.5-11.0)
[2023-09-16] MEDS: METFORMIN HCL 500 MG TABLET 1000 MG PO ×2 (08:31→20:52)
[2023-09-16] MEDS: APIXABAN 5 MG TABLET PO ×2 (08:31→20:53)
[2023-09-16] MEDS: SODIUM CHLORIDE 0.9% 1,000 ML 84 ML IV (08:33)
[2023-09-16] MEDS: VORICONAZOLE 200 MG TABLET PO ×2 (08:33→20:52)
[2023-09-16 08:47] LABS: Alanine Aminotransferase 18 IU/L (<50); Albumin 2.8 g/dL (3.5-5.0); Albumin Globulin Ratio 0.8 (1.0-2.8); Alkaline Phosphatase 148 U/L (38-126); BUN Creatinine Ratio 28.2 (6-22); Bilirubin Total 0.8 mg/dL (0.2-1.3); Blood Urea Nitrogen 20 mg/dL (9-20); Calcium 8.2 mg/dL (8.4-10.2); Carbon Dioxide 22 mmol/L (22-32); Chloride 99 mmol/L (98-107); Estimated Glomerular Filt Rate > 60 mL/min (>60); Globulin 3.4 g/dL (1.7-4.1); Glucose 161 mg/dL (80-110); HEMOLYSIS < 15 (0-50); Potassium 3.5 mmol/L (3.4-5.1); Sodium 128 mmol/L (137-145); Total Protein 6.2 g/dL (6.3-8.2)
[2023-09-16] MEDS: INSULIN LISPRO 100 UNIT/ML 3ML VIAL SUBCUT ×3 (08:53→16:12)
[2023-09-16] MEDS: POTASSIUM CHLORIDE 20 MEQ TAB 40 MEQ PO (11:58)
--- NOTE | 2023-09-16 12:48 | CM.DPC ---
DCP Cont. Reviewed EMR and team rounds for updates. No changes, pt will likely go to [facility] on Monday 09/18.
--- NOTE | 2023-09-16 13:50 | PT.IIE ---
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) Malignant neoplasm of prostate (09/15/23) Type 2 diabetes mellitus without complications (09/15/23) Hypo-osmolality and hyponatremia (09/15/23) Heart failure, unspecified (09/15/23) Pneumonia, unspecified organism (09/15/23) Pulmonary fibrosis, unspecified (09/15/23) Acute respiratory failure with hypoxia (09/15/23) Nosocomial condition (09/15/23) Medical History (Last Updated 09/15/23 @ 07:01 by Feliz Zimmerman MD) Aspergilloma DM II (diabetes mellitus, type II), controlled Fracture of femoral neck, right, closed Hypertension Prostate cancer Pulmonary fibrosis Physical Therapy Inpatient Evaluation/Re-Eval M1 PT/OT-IP Prior Functional Status Start: 09/16/23 15:22 Freq: NEEDED Status: Active Protocol: Document 09/16/23 13:50 AB (Rec: 09/16/23 15:40 AB [id number]) Medical Review Prior Functional Status Medical History Reviewed Yes Communication able to make needs know but pt is very [place] and primary language is [employer] Mobility and Gait pt was admitted here last for hip fx. PLOF and home set up info obtained from last admission's EMR: pt was modified independent with all mobilities and ambulation using FWW Prior Functional Level (Other details) pt admitted 09/02/23 s/p fall sustaining R femoral head fx and underwent R hip hemiarthroplasty. pt d/c'd to [facility] 09/08/23. pt admitted back here in the hospital 09/15/23 for PNA/ sepsis. Social History Household Members spouse Living Arrangements House Number of Floors (Floors) Two Floors Number of Stairs To Enter/Railing? pt stays on main level of the house no steps to enter from the garage Home Environment Standard Height Toilet,Walk in Shower Home Equipment Front Wheel Walker M2 PT-IP Current Condition Start: 09/16/23 15:22 Freq: NEEDED Status: Active Protocol: Document 09/16/23 13:50 AB (Rec: 09/16/23 15:40 AB [id number]) Physical Therapy Current Condition Current Condition Evaluation Date 09/16/23 Treatment Diagnosis PNA; sepsis; s/p R hip hemiarthroplasty; difficulty in walking Onset Date 09/15/23 M3 PT-IP Subjective Start: 09/16/23 15:22 Freq: NEEDED Status: Active Protocol: Document 09/16/23 13:50 AB (Rec: 09/16/23 15:40 AB [id number]) Subjective Physical Therapy Visit Type Type Initial Evaluation Visit Start Time 13:50 Visit Stop Time 14:25 Total Visit Minutes 35 Number of HEEL SEAT POUNDER Visits 0 Physical Therapy Visit Comments Patient Comments pt requesting to use the toilet Therapy Pain Assessment Pain Present Pain Present Denied Pain M4 PT-IP Mobility and Gait Start: 09/16/23 15:22 Freq: NEEDED Status: Active Protocol: Document 09/16/23 13:50 AB (Rec: 09/16/23 15:40 AB [id number]) PT-Bed Mobility Assessment Supine to Sit Supine to Sit Maximum Assistance,2 Person Assistance,Bedrails Sit to Supine Sit to Supine Maximum Assistance,2 Person Assistance,Head of Bed Elevated,Bedrails PT-Transfer Assessment Sit to and From Stand Sit to and from Stand Maximum Assistance,1 Person Assistance,2 Person Assistance ,Use of Upper Extremities Equipment Transfer Assistive Device Gait Belt,Front Wheeled Walker Orthotic/Prosthetic Devices or Brace: No Transfers Transfer Destination Bed,Toilet Transfer Technique Stand Step Pivot Transfer Ability Level of Assist Maximum Assistance,2 Person Assistance,Use of Upper Extremities Comments Mobility Comments pt supine in bed. O2 sat 96% @ 2L/min but with (+) SOB. pt requested to use the toilet. completed supine to sit max A x 2 and max cues. HOB elevated and pt used bed rail to assist. mod A for sitting balance. completed sit to stand max Ax 1-2 and max cues for hip precautions. completed step transfer to bedside commode using FWW max A x 2 and max cues. completed sit to stand from bedside commode max A x 1-2 and max cues and required max A for standing balance using FWW for support while NAC assisted with hygiene care and brief management. pt requested to go back to bed and completed step transfer to bed using FWW but midway with transfer, pt let go of FWW on one side and reached for bed rail requiring max A x 2 to stabilize and to turn. educated pt on safety and not to let go of his FWW during standing/transfers. completed sit to supine max A x 2 and max cues. positioned pt in bed . call light and table placed within reach. PT-Balance Assessment Sitting Balance and Reactions Dynamic Sitting Balance Ability Fair Standing Balance and Reactions Static Standing Balance Ability Poor Dynamic Standing Balance Ability Poor Device Used FWW M5 PT-IP Objective Assessments Start: 09/16/23 15:22 Freq: NEEDED Status: Active Protocol: Document 09/16/23 13:50 AB (Rec: 09/16/23 15:40 AB [id number]) Orientation Orientation/Cognition Level of Alertness Alert Orientation Name Language Function Ability Slovenian as Second Language, Hard of Hearing Safety Awareness Decreased Safety Awareness Memory Description Short Term Impaired,Window And Door Installer Impaired Strength Lower Extremity Strength Assessment Right Impaired Hip 3+/5 Knee 4-/5 Muscle Tone Muscle Tone WNL Yes M6 PT-IP Treatment Start: 09/16/23 15:22 Freq: NEEDED Status: Active Protocol: Document 09/16/23 13:50 AB (Rec: 09/16/23 15:40 AB [id number]) Physical Therapy Treatment Education Education Provided Precautions,Weight Bearing Status,Safety M7 PT-IP Assessment and Plan Start: 09/16/23 15:22 Freq: NEEDED Status: Active Protocol: Document 09/16/23 13:50 AB (Rec: 09/16/23 15:40 AB [id number]) PT Summary Assessment and Plan Potential Rehabilitation Potential Fair Status of Condition at Evaluation Evolving Summary Impairments Pain,ROM,Strength,Balance, Coordination,Sensation,Tone, Cognition,Bed Mobility, Transfers,Gait,Activity Tolerance Assessment Summary pt is an 88 y/o M who is admitted for PNA; sepsis. pt was just admitted 09/02/23 s/p fall sustaining R femoral head fx and underwent R hip hemiarthroplasty. pt d/c'd to [facility] 09/08/23. pt admitted back here in the hospital 09/15/23 for PNA/ sepsis. pt with R hip posterior precautions and is WBAT. pt requiring max A x 2 with mobility and will require SNF rehab to improve mobility and independence. Goals Bed Mobility Goal Minimal Assistance Transfer Goal Minimal Assistance,Front Wheeled Walker Gait Goal Minimal Assistance,Front Wheel Walker Gait Distance 50 Other Goals improve bed mobility, transfers, ambulation using FWW ~ 150 ft SBA Days to Meet Goals 10 Frequency of Treatment Frequency Of Treatment Twice a Day Treatment Plan Physical Therapy Treatment Plan Bed Mobility Training,Transfer Training,Gait Training, Therapeutic Exercise,Balance Retraining,Post Op Education, Discharge Planning,Hot or Cold Pack,Neuromuscular Re-ed, Coordination Retraining,Manual Therapy Precautions Posterior Hip Precautions No Hip Flexion > 90 degrees,No Hip Internal Rotation,No Hip Adduction Weight Bearing Status Weight Bearing Status Weight Bear as Tolerated Allowed Weight Bearing Amount (enter % RLE WBAT or #) (%) Recommendations To Nursing Amount of Assist Needed 2 Person Assist Discharge Recommendations PT Discharge Recommendations SNF Rehab Transportation Needs at Discharge Wheelchair/Cabulance
[2023-09-16] MEDS: SODIUM CHLORIDE 1,000 MG TABLET 1000 MG PO ×2 (14:43→17:17)
[2023-09-16] MEDS: VANCOMYCIN TROUGH 1 REQUEST MISC (15:15)
--- NOTE | 2023-09-16 15:22 | PM.PN.1 ---
Subjective Subjective Interval history: Doing better, no pain or dyspnea. Exam Vital Signs (past 8 hours): - 09/16/23 07:35 09/16/23 07:35 09/16/23 09:54 Temperature 95.1 F L 95.1 F L Pulse Rate 88 88 Respiratory Rate Blood Pressure 130/62 130/62 Pulse Oximetry 100 100 97 Oxygen Delivery Method Nasal Cannula Oxygen Flow Rate 2 09/16/23 12:00 Temperature Pulse Rate 77 Respiratory Rate 18 Blood Pressure 120/63 Pulse Oximetry 98 Oxygen Delivery Method Oxygen Flow Rate 2 Oxygen Delivery Method Nasal Cannula Oxygen Flow Rate 2 Narrative Exam Narrative: NAD, smiling. Lungs clear and with normal rate and effort. CV regular. Abdomen flat. No leg edema. Objective Labs 09/16/23 08:00 09/16/23 08:00 Labs: Laboratory Results - last 24 hr 09/16/23 08:00 WBC 12.2 H RBC 3.07 L Hgb 8.6 L Hct 25.8 L MCV 84.1 MCH 28.0 MCHC 33.4 RDW 16.1 H Plt Count 413 H Neut % (Auto) 81.1 H Lymph % (Auto) 10.7 L [place] % (Auto) 5.0 Eos % (Auto) 2.6 Baso % (Auto) 0.6 Neut # (Auto) 9900 H Lymph # (Auto) 1300 [place] # (Auto) 600 Eos # (Auto) 300 Baso # (Auto) 100 Sodium 128 L Potassium 3.5 Chloride 99 Carbon Dioxide 22 BUN 20 Creatinine 0.71 Estimated GFR > 60 BUN/Creatinine Ratio 28.2 H Glucose 161 H Calcium 8.2 L Total Bilirubin 0.8 AST TNP ALT 18 Alkaline Phosphatase 148 H Total Protein 6.2 L Albumin 2.8 L Globulin 3.4 Albumin/Globulin Ratio 0.8 L [facility] Medical History (Updated 09/15/23 @ 07:01 by Feliz Zimmerman MD) DM II (diabetes mellitus, type II), controlled Hypertension Prostate cancer Aspergilloma Pulmonary fibrosis Fracture of femoral neck, right, closed Social History household members: spouse and children Smoking Status: Never smoker Assessment & Plan Assessment & Plan narrative: 1. Hospital associated pneumonia, present on admission and improving. 2. Hyponatremia, present on admission and active. H/O recent SIADH. 3. Acute hypoxic respiratory failure, present on admission and active. 4. Chronic pulmonary fibrosis, present on admission and active. 5. Aspergilloma (subacute), present on admission and active. 6. Diabetes mellitus 2, present on admission and active. Stable. 7. Prostate cancer with history of Lupron, present on admission and active. 8. Congestive heart failure, present on admission and stable. No evidence of volume overload. PLAN: -continue antibiotics, cefepime and vancomycin. Cultures remain negative. -fluid restrict, Salt tabs and monitor Na. -wean oxygen as able. -continue physical therapy. -continue voriconazole. -continue Eliquis as patient had been converted from warfarin to Eliquis at the last discharge. -monitor blood sugars. Continue subcutaneous insulin regimen. Met with family (son Ever, [place]). Point of contact is Marshal (partner of Ever), who is a CNO in [place]. Number [phone]. DISPO: return to [facility] in 2-3 days when improved. Quality VTE Deep Vein Thrombosis/Pulmonary Embolism Present on Admission: No
[2023-09-16 15:50] LABS: Vancomycin Trough 7.5 ug/mL (10-20)
[2023-09-16] MEDS: ALBUTEROL 2.5 MG/3 ML NEB (ADULT) INH (16:27)
[2023-09-16] MEDS: DOCUSATE 100 MG CAPSULE PO (20:53)
[2023-09-16] MEDS: SENNOSIDES 8.6 MG TABLET 17.2 MG PO (20:53)
[2023-09-17] VITALS (10 sets, daily range): BP systolic 124–144; BP diastolic 44–83; PULSE 82–112; RESP 19–24; TEMP 35.7–36.5; O2SAT 94–99
[2023-09-17] MEDS: VANCOMYCIN 1,250 MG/250 ML PIGGYBACK 250 MG IV ×2 (01:57→15:48)
[2023-09-17] MEDS: CEFEPIME 1 GM in SODIUM CHLORIDE 0.9% 100 ML IV ×2 (05:45→19:21)
[2023-09-17 07:01] LABS: Add Manual Diff / Slide Review NO; Basophils Absolute Auto 100 /uL (0-100); Basophils Percent Auto 0.7 % (0-2); Eosinophils Absolute Auto 500 /uL (0-450); Eosinophils Percent Auto 4.9 % (2-4); Hematocrit 25.9 % (41-53); Hemoglobin 8.7 g/dL (13.5-17.5); Lymphocytes Absolute Auto 1000 /uL (1100-4500); Lymphocytes Percent Auto 9.7 % (25-40); Mean Corpuscular HGB Conc 33.6 % (30-36); Mean Corpuscular Hemoglobin 28.5 PG (26-34); Mean Corpuscular Volume 84.9 fL (80-100); Monocytes Absolute Auto 500 /uL (0-900); Monocytes Percent Auto 4.8 % (3-14); Neutrophils Absolute Auto 7900 /uL (1500-7000); Neutrophils Percent Auto 79.9 % (50-75); Platelet Count 422 X10^3/uL (150-400); Red Blood Cell Count 3.05 X10^6/uL (4.5-5.9); Red Cell Distribution Width 16.4 % (11.6-14.8); White Blood Cell Count 9.9 X10^3/uL (4.5-11.0)
[2023-09-17 07:13] LABS: Alanine Aminotransferase 17 IU/L (<50); Albumin 2.8 g/dL (3.5-5.0); Albumin Globulin Ratio 0.8 (1.0-2.8); Alkaline Phosphatase 148 U/L (38-126); Bilirubin Total 0.6 mg/dL (0.2-1.3); Blood Urea Nitrogen 18 mg/dL (9-20); Calcium 8.2 mg/dL (8.4-10.2); Carbon Dioxide 20 mmol/L (22-32); Chloride 100 mmol/L (98-107); Estimated Glomerular Filt Rate > 60 mL/min (>60); Globulin 3.4 g/dL (1.7-4.1); Glucose 159 mg/dL (80-110); HEMOLYSIS < 15 (0-50); Potassium 3.9 mmol/L (3.4-5.1); Sodium 129 mmol/L (137-145); Total Protein 6.2 g/dL (6.3-8.2)
[2023-09-17] MEDS: INSULIN LISPRO 100 UNIT/ML 3ML VIAL SUBCUT ×2 (08:39→21:21)
--- NOTE | 2023-09-17 08:58 | PT.IPTN ---
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) Malignant neoplasm of prostate (09/15/23) Type 2 diabetes mellitus without complications (09/15/23) Hypo-osmolality and hyponatremia (09/15/23) Heart failure, unspecified (09/15/23) Pneumonia, unspecified organism (09/15/23) Pulmonary fibrosis, unspecified (09/15/23) Acute respiratory failure with hypoxia (09/15/23) Nosocomial condition (09/15/23) Physical Therapy Treatment Note M2 PT-IP Current Condition Start: 09/16/23 15:22 Freq: NEEDED Status: Active Protocol: Document 09/16/23 13:50 AB (Rec: 09/16/23 15:40 AB [email or web address]) Physical Therapy Current Condition Current Condition Evaluation Date 09/16/23 Treatment Diagnosis PNA; sepsis; s/p R hip hemiarthroplasty; difficulty in walking Onset Date 09/15/23 M3 PT-IP Subjective Start: 09/16/23 15:22 Freq: NEEDED Status: Active Protocol: Document 09/17/23 10:13 TS (Rec: 09/17/23 10:36 TS [email or web address]) Subjective Physical Therapy Visit Type Type Treatment Note Visit Start Time 08:58 Visit Stop Time 09:10 Total Visit Minutes 12 Number of MOBILE HEAVY EQUIPMENT MECHANIC Visits 1 Physical Therapy Visit Comments Patient Comments Pt found sitting EOB with nursing, is agreeable to PT. M4 PT-IP Mobility and Gait Start: 09/16/23 15:22 Freq: NEEDED Status: Active Protocol: Document 09/17/23 10:13 TS (Rec: 09/17/23 10:36 TS [id number]) PT-Bed Mobility Assessment Sit to Supine Sit to Supine Moderate Assistance,1 Person Assistance,Head of Bed Elevated,Bedrails Scooting Scooting to Edge of Bed Minimal Assistance PT-Transfer Assessment Sit to and From Stand Sit to and from Stand Minimal Assistance,1 Person Assistance,Use of Upper Extremities Equipment Transfer Assistive Device Gait Belt,Front Wheeled Walker Orthotic/Prosthetic Devices or Brace: No Comments Mobility Comments Pt found resting on 2L of o2 in mid 90's prior to mobility. Sit to stand from EOB Jakub with use of FWW, pt has fair standing with slight retrolean . Pt requests to sit, reports SOB, Spo2 88%. Sit to supine into bed ModA x1 for LE's into bed. Pt continues to report SOB, cued for PLB and breahting through nose, pt is a mouth breather. Pt was left in bed, all needs met. Gait Assessment Comments Gait Comments Not this session PT-Balance Assessment Sitting Balance and Reactions Static Sitting Balance Ability Good Dynamic Sitting Balance Ability Fair Standing Balance and Reactions Static Standing Balance Ability Fair Device Used FWW M5 PT-IP Objective Assessments Start: 09/16/23 15:22 Freq: NEEDED Status: Active Protocol: Document 09/16/23 13:50 AB (Rec: 09/16/23 15:40 AB [id number]) Orientation Orientation/Cognition Level of Alertness Alert Orientation Name Language Function Ability Luxembourgish as Second Language, Hard of Hearing Safety Awareness Decreased Safety Awareness Memory Description Short Term Impaired,Hydro Operator Impaired Strength Lower Extremity Strength Assessment Right Impaired Hip 3+/5 Knee 4-/5 Muscle Tone Muscle Tone WNL Yes M6 PT-IP Treatment Start: 09/16/23 15:22 Freq: NEEDED Status: Active Protocol: Document 09/17/23 10:13 TS (Rec: 09/17/23 10:36 TS [id number]) Physical Therapy Treatment Education Education Provided Precautions,Weight Bearing Status,Safety M7 PT-IP Assessment and Plan Start: 09/16/23 15:22 Freq: NEEDED Status: Active Protocol: Document 09/17/23 10:13 TS (Rec: 09/17/23 10:36 TS [id number]) PT Summary Assessment and Plan Potential Rehabilitation Potential Fair Summary Impairments Pain,ROM,Strength,Balance, Coordination,Sensation,Tone, Cognition,Bed Mobility, Transfers,Gait,Activity Tolerance Progress Towards Goals Slow Progress due to Medical Issues,Slow Progress due to Activity Tolerance Assessment Summary Adama is making slow progress with his mobility due to poor activity tolerance and ongoing medical issues. He performed sit to stand with FWW Jakub with a slight retrolean but had no LOB. He quickly became fatigued and reported SOB. Spo2 at rest on 2L in mid 90's , with mobility desats to high 80's. Pt tends to be a mouth breather and requires cues for PLB, o2 improved. PT continues to recommend SNF at this time. Goals Bed Mobility Goal Minimal Assistance Transfer Goal Minimal Assistance,Front Wheeled Walker Gait Goal Minimal Assistance,Front Wheel Walker Gait Distance 50 Other Goals improve bed mobility, transfers, ambulation using FWW ~ 150 ft SBA Days to Meet Goals 10 Frequency of Treatment Frequency Of Treatment Twice a Day Treatment Plan Physical Therapy Treatment Plan Bed Mobility Training,Transfer Training,Gait Training, Therapeutic Exercise,Balance Retraining,Post Op Education, Discharge Planning,Hot or Cold Pack,Neuromuscular Re-ed, Coordination Retraining,Manual Therapy Precautions Posterior Hip Precautions No Hip Flexion > 90 degrees,No Hip Internal Rotation,No Hip Adduction Weight Bearing Status Weight Bearing Status Weight Bear as Tolerated Allowed Weight Bearing Amount (enter % RLE WBAT or #) (%) Recommendations To Nursing Amount of Assist Needed 2 Person Assist Discharge Recommendations PT Discharge Recommendations SNF Rehab Transportation Needs at Discharge Wheelchair/Cabulance
[2023-09-17] MEDS: APIXABAN 5 MG TABLET PO ×2 (09:42→21:27)
[2023-09-17] MEDS: DOCUSATE 100 MG CAPSULE PO ×2 (09:42→21:27)
[2023-09-17] MEDS: SODIUM CHLORIDE 1,000 MG TABLET 1000 MG PO ×2 (09:42→12:19)
[2023-09-17] MEDS: predniSONE 20 MG TABLET 10 MG PO (09:42)
[2023-09-17] MEDS: METFORMIN HCL 500 MG TABLET 1000 MG PO ×2 (09:42→21:27)
[2023-09-17] MEDS: VORICONAZOLE 200 MG TABLET PO ×2 (09:56→21:27)
--- NOTE | 2023-09-17 11:28 | P.PN_ITS ---
Subjective Subjective Interval history: Doing better, no pain or dyspnea reported though he is dyspnic with sentences. No longer on supplemental oxygen this morning. Exam Vital Signs (past 8 hours): - 09/17/23 04:29 09/17/23 07:00 09/17/23 08:00 Temperature 97.7 F 97.4 F L Pulse Rate 102 H 89 Respiratory Rate 24 20 Blood Pressure 144/63 H 137/74 Pulse Oximetry 94 97 96 Oxygen Delivery Method Nasal Cannula Oxygen Flow Rate 2 2 2 Oxygen Delivery Method Nasal Cannula Oxygen Flow Rate 2 Narrative Exam Narrative: NAD, smiling. Lungs clear and with normal rate and effort. CV regular. Abdomen flat. No leg edema. Objective Labs 09/17/23 06:40 09/17/23 06:40 Labs: Laboratory Results - last 24 hr 09/16/23 09/17/23 15:15 06:40 WBC 9.9 RBC 3.05 L Hgb 8.7 L Hct 25.9 L MCV 84.9 MCH 28.5 MCHC 33.6 RDW 16.4 H Plt Count 422 H Neut % (Auto) 79.9 H Lymph % (Auto) 9.7 L [place] % (Auto) 4.8 Eos % (Auto) 4.9 H Baso % (Auto) 0.7 Neut # (Auto) 7900 H Lymph # (Auto) 1000 L [place] # (Auto) 500 Eos # (Auto) 500 H Baso # (Auto) 100 Sodium 129 L Potassium 3.9 Chloride 100 Carbon Dioxide 20 L BUN 18 Creatinine 0.75 Estimated GFR > 60 BUN/Creatinine Ratio 24.0 H Glucose 159 H Calcium 8.2 L Total Bilirubin 0.6 AST TNP ALT 17 Alkaline Phosphatase 148 H Total Protein 6.2 L Albumin 2.8 L Globulin 3.4 Albumin/Globulin Ratio 0.8 L Vancomycin Trough 7.5 L PFSH Medical History (Updated 09/15/23 @ 07:01 by Feliz Zimmerman MD) DM II (diabetes mellitus, type II), controlled Hypertension Prostate cancer Aspergilloma Pulmonary fibrosis Fracture of femoral neck, right, closed Social History household members: spouse Smoking Status: Never smoker Assessment & Plan Assessment & Plan narrative: 1. Hospital associated pneumonia, present on admission and improving. 2. Hyponatremia, present on admission and active. H/O recent SIADH. 3. Acute hypoxic respiratory failure, present on admission and active. 4. Chronic pulmonary fibrosis, present on admission and active. 5. Aspergilloma (subacute), present on admission and active. 6. Diabetes mellitus 2, present on admission and active. Stable. 7. Prostate cancer with history of Lupron, present on admission and active. 8. Congestive heart failure, present on admission and stable. No evidence of volume overload. PLAN: -continue antibiotics, cefepime and vancomycin. Cultures remain negative. -fluid restrict, Salt tabs and monitor Na for hyponatremia. Stable at 129 today. -wean oxygen as able, now off but will continue to monitor throughout the day -continue physical therapy. -continue voriconazole. -continue Eliquis as patient had been converted from warfarin to Eliquis at the last discharge. -monitor blood sugars. Continue subcutaneous insulin regimen. DISPO: return to [facility], hopefully tomorrow if patient remains off supplemental oxygenation. discussed with case management, previous hospitalist providing care, to formulate the above assessment and plan. Quality VTE Deep Vein Thrombosis/Pulmonary Embolism Present on Admission: No
--- NOTE | 2023-09-17 12:13 | CM.DPC ---
DCP Cont. Reviewed EMR and team rounds for status updates. Pt is continuing to improve, plan is to continue IV ABO's through tomorrow, pt is now off of O2, but this will be monitored throughout the day. Called [facility] and updated them on pt's status, and probable d/c tomorrow if he remains stable. Will continue to follow closely.
--- NOTE | 2023-09-17 14:11 | PT.IPTN ---
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) Malignant neoplasm of prostate (09/15/23) Type 2 diabetes mellitus without complications (09/15/23) Hypo-osmolality and hyponatremia (09/15/23) Heart failure, unspecified (09/15/23) Pneumonia, unspecified organism (09/15/23) Pulmonary fibrosis, unspecified (09/15/23) Acute respiratory failure with hypoxia (09/15/23) Nosocomial condition (09/15/23) Physical Therapy Treatment Note M2 PT-IP Current Condition Start: 09/16/23 15:22 Freq: NEEDED Status: Active Protocol: Document 09/16/23 13:50 AB (Rec: 09/16/23 15:40 AB [id number]) Physical Therapy Current Condition Current Condition Evaluation Date 09/16/23 Treatment Diagnosis PNA; sepsis; s/p R hip hemiarthroplasty; difficulty in walking Onset Date 09/15/23 M3 PT-IP Subjective Start: 09/16/23 15:22 Freq: NEEDED Status: Active Protocol: Document 09/17/23 14:41 TS (Rec: 09/17/23 14:55 TS [id number]) Subjective Physical Therapy Visit Type Type Treatment Note Visit Start Time 14:11 Visit Stop Time 14:39 Total Visit Minutes 28 Number of CREDIT VERIFIER Visits 2 Physical Therapy Visit Comments Patient Comments Pt found resting in bed on 4L of o2, Spo2 100%, pt agreeable to PT. M4 PT-IP Mobility and Gait Start: 09/16/23 15:22 Freq: NEEDED Status: Active Protocol: Document 09/17/23 14:41 TS (Rec: 09/17/23 14:55 TS [id number]) PT-Bed Mobility Assessment Supine to Sit Supine to Sit Moderate Assistance,1 Person Assistance,Bedrails Scooting Scooting to Edge of Bed Minimal Assistance PT-Transfer Assessment Sit to and From Stand Sit to and from Stand Minimal Assistance,1 Person Assistance,Use of Upper Extremities Equipment Transfer Assistive Device Gait Belt,Front Wheeled Walker Orthotic/Prosthetic Devices or Brace: No Transfers Transfer Destination Chair Transfer Technique Stand Step Pivot Transfer Ability Level of Assist Minimal Assistance,1 Person Assistance,Use of Upper Extremities Comments Mobility Comments Supine to sit HOB elevated 55D ModA with handheld assist to upright trunk. He scooted to EOB Jakub with some difficulty, cues were provided for BUE support. Sit to stand with FWW Jakub, pt has some retroleaning in standing, braces back of LEs against bed for balance. He performed stand step pivot tranfer to chair Jakub with use of FWW. Pt sat in chair, has SOB, Spo2 96% on 4L, HR ~120's. Pt requested to use urinal, performed sit to stand with FWW Jakub for changing of brief . Pt was left in chair with chair alarm on, all needs met, RN notified. Gait Assessment Gait Gait Assistance Required: Minimum Assistance,1 Person Assist Distance (Feet) 2 Able to Maintain Weight Bearing Status Yes During Gait Assistive Devices Assistive Device Gait Belt,Front Wheeled Walker Orthotic/Prosthetic Devices or Brace: No Gait Deviations General Gait Pattern Antalgic,Decreased Stride Length,Decreased Feet Clearance,Flexed Trunk,Step-to Gait Factors Limiting Gait Function Factors Limiting Gait Function Decreased Activity Tolerance, Decreased Strength,Difficulty Following Directions,Poor Balance,Poor Safety Awareness, Respiratory Distress Comments Gait Comments Stand step pivot transfer PT-Balance Assessment Sitting Balance and Reactions Static Sitting Balance Ability Good Dynamic Sitting Balance Ability Fair Standing Balance and Reactions Static Standing Balance Ability Fair Dynamic Standing Balance Ability Poor Device Used FWW M5 PT-IP Objective Assessments Start: 09/16/23 15:22 Freq: NEEDED Status: Active Protocol: Document 09/16/23 13:50 AB (Rec: 09/16/23 15:40 AB [id number]) Orientation Orientation/Cognition Level of Alertness Alert Orientation Name Language Function Ability Pakistani as Second Language, Hard of Hearing Safety Awareness Decreased Safety Awareness Memory Description Short Term Impaired,Retirement Impaired Strength Lower Extremity Strength Assessment Right Impaired Hip 3+/5 Knee 4-/5 Muscle Tone Muscle Tone WNL Yes M6 PT-IP Treatment Start: 09/16/23 15:22 Freq: NEEDED Status: Active Protocol: Document 09/17/23 14:41 TS (Rec: 09/17/23 14:55 TS [id number]) Physical Therapy Treatment Education Education Provided Precautions,Weight Bearing Status,Safety M7 PT-IP Assessment and Plan Start: 09/16/23 15:22 Freq: NEEDED Status: Active Protocol: Document 09/17/23 14:41 TS (Rec: 09/17/23 14:55 TS [id number]) PT Summary Assessment and Plan Potential Rehabilitation Potential Fair Summary Impairments Pain,ROM,Strength,Balance, Coordination,Sensation,Tone, Cognition,Bed Mobility, Transfers,Gait,Activity Tolerance Progress Towards Goals Slow Progress due to Medical Issues,Slow Progress due to Activity Tolerance Assessment Summary Adama continues to make slow progress with his mobility. He quickly becomes SOB and fatigued with mobility, Spo2 remained in mid 90's on 4L of o2. He is ModA for supine to sit with use of handheld assist and rails. He performed sit to stand x2 with Jakub and use of FWW. He has poor safety awareness with his mobility, tends to let go of FWW. PT is recommending SNF rehab at this time. Goals Bed Mobility Goal Minimal Assistance Transfer Goal Minimal Assistance,Front Wheeled Walker Gait Goal Minimal Assistance,Front Wheel Walker Gait Distance 50 Other Goals improve bed mobility, transfers, ambulation using FWW ~ 150 ft SBA Days to Meet Goals 10 Frequency of Treatment Frequency Of Treatment Twice a Day Treatment Plan Physical Therapy Treatment Plan Bed Mobility Training,Transfer Training,Gait Training, Therapeutic Exercise,Balance Retraining,Post Op Education, Discharge Planning,Hot or Cold Pack,Neuromuscular Re-ed, Coordination Retraining,Manual Therapy Precautions Posterior Hip Precautions No Hip Flexion > 90 degrees,No Hip Internal Rotation,No Hip Adduction Weight Bearing Status Weight Bearing Status Weight Bear as Tolerated Allowed Weight Bearing Amount (enter % RLE WBAT or #) (%) Recommendations To Nursing Amount of Assist Needed 2 Person Assist Discharge Recommendations PT Discharge Recommendations SNF Rehab Transportation Needs at Discharge Wheelchair/Cabulance
[2023-09-17 17:12] LABS: MRSA (Nasal) PCR Not Detected (Not Detect)
[2023-09-17] MEDS: SENNOSIDES 8.6 MG TABLET 17.2 MG PO (21:27)
[2023-09-18] MEDS: VANCOMYCIN 1,250 MG/250 ML PIGGYBACK 250 MG IV (01:58)
[2023-09-18 03:41] VITALS: BP 143/86; PULSE 82; RESP 21; TEMP 35.8; O2SAT 93
[2023-09-18] MEDS: CEFEPIME 1 GM in SODIUM CHLORIDE 0.9% 100 ML IV (05:37)
[2023-09-18 07:00] VITALS: O2SAT 95
[2023-09-18] MEDS: METFORMIN HCL 500 MG TABLET 1000 MG PO (08:05)
[2023-09-18] MEDS: VORICONAZOLE 200 MG TABLET PO (08:05)
[2023-09-18 08:10] VITALS: BP 154/95; PULSE 80; RESP 19; TEMP 36.3; O2SAT 95
[2023-09-18] MEDS: APIXABAN 5 MG TABLET PO (08:10)
[2023-09-18] MEDS: SODIUM CHLORIDE 1,000 MG TABLET 1000 MG PO ×2 (08:10→14:35)
[2023-09-18] MEDS: predniSONE 20 MG TABLET 10 MG PO (08:10)
[2023-09-18] MEDS: INSULIN LISPRO 100 UNIT/ML 3ML VIAL SUBCUT ×2 (08:16→12:16)
[2023-09-18 08:56] LABS: Alanine Aminotransferase 16 IU/L (<50); Albumin 2.9 g/dL (3.5-5.0); Albumin Globulin Ratio 0.9 (1.0-2.8); Alkaline Phosphatase 143 U/L (38-126); BUN Creatinine Ratio 26.4 (6-22); Bilirubin Total 0.6 mg/dL (0.2-1.3); Blood Urea Nitrogen 19 mg/dL (9-20); Calcium 8.5 mg/dL (8.4-10.2); Carbon Dioxide 17 mmol/L (22-32); Chloride 105 mmol/L (98-107); Estimated Glomerular Filt Rate > 60 mL/min (>60); Globulin 3.4 g/dL (1.7-4.1); Glucose 143 mg/dL (80-110); HEMOLYSIS < 15 (0-50); Potassium 3.8 mmol/L (3.4-5.1); Sodium 131 mmol/L (137-145); Total Protein 6.3 g/dL (6.3-8.2)
[2023-09-18 08:57] LABS: Add Manual Diff / Slide Review NO; Basophils Absolute Auto 0 /uL (0-100); Basophils Percent Auto 0.2 % (0-2); Eosinophils Absolute Auto 300 /uL (0-450); Eosinophils Percent Auto 2.7 % (2-4); Hematocrit 27.1 % (41-53); Lymphocytes Absolute Auto 1900 /uL (1100-4500); Lymphocytes Percent Auto 17.8 % (25-40); Mean Corpuscular HGB Conc 33.1 % (30-36); Mean Corpuscular Hemoglobin 28.1 PG (26-34); Monocytes Absolute Auto 700 /uL (0-900); Monocytes Percent Auto 6.9 % (3-14); Neutrophils Absolute Auto 7700 /uL (1500-7000); Neutrophils Percent Auto 72.4 % (50-75); Platelet Count 470 X10^3/uL (150-400); Red Blood Cell Count 3.19 X10^6/uL (4.5-5.9); Red Cell Distribution Width 16.6 % (11.6-14.8); White Blood Cell Count 10.7 X10^3/uL (4.5-11.0)
--- NOTE | 2023-09-18 09:00 | PT.IPTN ---
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) Malignant neoplasm of prostate (09/15/23) Type 2 diabetes mellitus without complications (09/15/23) Hypo-osmolality and hyponatremia (09/15/23) Heart failure, unspecified (09/15/23) Pneumonia, unspecified organism (09/15/23) Pulmonary fibrosis, unspecified (09/15/23) Acute respiratory failure with hypoxia (09/15/23) Nosocomial condition (09/15/23) Physical Therapy Treatment Note M2 PT-IP Current Condition Start: 09/16/23 15:22 Freq: NEEDED Status: Active Protocol: Document 09/16/23 13:50 AB (Rec: 09/16/23 15:40 AB [id number]) Physical Therapy Current Condition Current Condition Evaluation Date 09/16/23 Treatment Diagnosis PNA; sepsis; s/p R hip hemiarthroplasty; difficulty in walking Onset Date 09/15/23 M3 PT-IP Subjective Start: 09/16/23 15:22 Freq: NEEDED Status: Active Protocol: Document 09/18/23 09:25 TS (Rec: 09/18/23 09:34 TS [id number]) Subjective Physical Therapy Visit Type Type Treatment Note Visit Start Time 09:00 Visit Stop Time 09:25 Total Visit Minutes 25 Number of MEDICAID BILLER Visits 3 Physical Therapy Visit Comments Patient Comments Pt ound resting on 2L of o2, Spo2 93%, pt is agreeable to PT. M4 PT-IP Mobility and Gait Start: 09/16/23 15:22 Freq: NEEDED Status: Active Protocol: Document 09/18/23 09:25 TS (Rec: 09/18/23 09:34 TS [id number]) PT-Bed Mobility Assessment Supine to Sit Supine to Sit Moderate Assistance,1 Person Assistance,Bedrails Scooting Scooting to Edge of Bed Contact Guard Assistance PT-Transfer Assessment Sit to and From Stand Sit to and from Stand Contact Guard Assistance,1 Person Assistance,Use of Upper Extremities Equipment Transfer Assistive Device Gait Belt,Front Wheeled Walker Orthotic/Prosthetic Devices or Brace: No Transfers Transfer Destination Chair,Bedside Commode Transfer Technique Stand Step Pivot Transfer Ability Level of Assist Contact Guard Assistance,1 Person Assistance,Use of Upper Extremities Comments Mobility Comments Supine to sit HOB elevated 50D with ModA for uprighting trunk, pt required cues for handrail assist. Sit to stand from bed with FWW CGA, pt becomes SOB requires cues for PLB. Pt transferred to [facility] with stand step pivot and use of FWW. Sit to stand from [facility] CGA with use of FWW, pt required assist for pericare. He performed another stand step pivot to chair, requests to rest, continues to be SOB, Spo2 95% on 2L. Pt was left in chair, chair alarm on, all needs met. Gait Assessment Gait Gait Assistance Required: Contact Guard Assist,1 Person Assist Distance (Feet) 4 Able to Maintain Weight Bearing Status Yes During Gait Assistive Devices Assistive Device Gait Belt,Front Wheeled Walker Orthotic/Prosthetic Devices or Brace: No Gait Deviations General Gait Pattern Antalgic,Decreased Stride Length,Decreased Feet Clearance,Flexed Trunk,Step-to Gait Factors Limiting Gait Function Factors Limiting Gait Function Decreased Activity Tolerance, Decreased Strength,Difficulty Following Directions,Poor Balance,Poor Safety Awareness, Respiratory Distress Comments Gait Comments Stand step pivot transfer x2 PT-Balance Assessment Sitting Balance and Reactions Static Sitting Balance Ability Good Dynamic Sitting Balance Ability Fair Standing Balance and Reactions Static Standing Balance Ability Fair Dynamic Standing Balance Ability Fair Device Used FWW M5 PT-IP Objective Assessments Start: 09/16/23 15:22 Freq: NEEDED Status: Active Protocol: Document 09/16/23 13:50 AB (Rec: 09/16/23 15:40 AB [id number]) Orientation Orientation/Cognition Level of Alertness Alert Orientation Name Language Function Ability Somali as Second Language, Hard of Hearing Safety Awareness Decreased Safety Awareness Memory Description Short Term Impaired,Senior Business Process Analyst Impaired Strength Lower Extremity Strength Assessment Right Impaired Hip 3+/5 Knee 4-/5 Muscle Tone Muscle Tone WNL Yes M6 PT-IP Treatment Start: 09/16/23 15:22 Freq: NEEDED Status: Active Protocol: Document 09/18/23 09:25 TS (Rec: 09/18/23 09:34 TS [id number]) Physical Therapy Treatment Education Education Provided Precautions,Weight Bearing Status,Safety M7 PT-IP Assessment and Plan Start: 09/16/23 15:22 Freq: NEEDED Status: Active Protocol: Document 09/18/23 09:25 TS (Rec: 09/18/23 09:34 TS [id number]) PT Summary Assessment and Plan Potential Rehabilitation Potential Fair Summary Impairments Pain,ROM,Strength,Balance, Coordination,Sensation,Tone, Cognition,Bed Mobility, Transfers,Gait,Activity Tolerance Progress Towards Goals Slow Progress due to Medical Issues,Slow Progress due to Activity Tolerance Assessment Summary Adama continues to make slow progress with his mobility. He becomes quickly SOB with movement and requires repeated cues for PLB, pt is a mouth breather. He is making some progress with his mobility requiring decreased assist for sit to stand and transfer with FWW. He does not tolerate much activity and has not progressed past doing transfer . PT continues to recommend SNF at this time. Goals Bed Mobility Goal Minimal Assistance Transfer Goal Minimal Assistance,Front Wheeled Walker Gait Goal Minimal Assistance,Front Wheel Walker Gait Distance 50 Other Goals improve bed mobility, transfers, ambulation using FWW ~ 150 ft SBA Days to Meet Goals 10 Frequency of Treatment Frequency Of Treatment Twice a Day Treatment Plan Physical Therapy Treatment Plan Bed Mobility Training,Transfer Training,Gait Training, Therapeutic Exercise,Balance Retraining,Post Op Education, Discharge Planning,Hot or Cold Pack,Neuromuscular Re-ed, Coordination Retraining,Manual Therapy Precautions Posterior Hip Precautions No Hip Flexion > 90 degrees,No Hip Internal Rotation,No Hip Adduction Weight Bearing Status Weight Bearing Status Weight Bear as Tolerated Allowed Weight Bearing Amount (enter % RLE WBAT or #) (%) Recommendations To Nursing Amount of Assist Needed 1 Person Assist Discharge Recommendations PT Discharge Recommendations SNF Rehab Transportation Needs at Discharge Wheelchair/Cabulance
[2023-09-18] MEDS: ACETAMINOPHEN 325 MG TABLET 650 MG PO (10:33)
--- NOTE | 2023-09-18 11:07 | CM.DPC ---
DCP Cont. Reviewed EMR and team rounds for status updates. Per family, they do not want pt to return to [facility]. Sent clinicals to [facility] for review, per family's request. [facility] accepts. Pt will be transported by [facility] once the d/c orders are in place. No further DCP needs indicated at this time.
[2023-09-18 12:00] VITALS: BP 142/82; PULSE 78; RESP 20; TEMP 36.2; O2SAT 97
--- NOTE | 2023-09-18 12:54 | CM.DPNOTE ---
[facility] Spoke to Candy, and the soonest is 1500 for pickup. I told her pt. requires 2 Lt. O2 and that we have a tank. i told her to bring tank back to [facility]. I also gave her Alexia number at [facility] for billing. Opal Mosher, CASSIE Customer Support Engineer.
--- NOTE | 2023-09-18 13:08 | PM.DS.1 ---
History of Present Illness History of Present Illness Date Patient Seen: 09/18/23 Time Patient Seen: 09:45 Chief complaint: dyspnea Narrative: Per admitting provider, The patient is an 88-year-old male with a history of interstitial lung disease, atrial fibrillation, hypertension, and diabetes who presents from long term facility with dyspnea and hypoxemia. The patient was recently transferred from this hospital to the facility after a right hip fracture and operative repair. He was there for rehab. He had been doing well until September 14 when he developed hypoxemia and some dyspnea with exertion. There has been no report of fevers, or cough. The patient was found to have infiltrates on CT scan consistent with an acute pneumonia. The patient was started on IV antibiotics in the emergency department. The patient denies any chest pain, nausea or vomiting. Discharge Providers Provider Date of admission: 09/15/23 04:38 Discharge Date: 09/18/23 Primary care physician: HUSAM Browne Consults: 09/16/23 10:25 Consult to Physical Therapy Evaluate & Treat Comment: Physician Instructions: Evaluate and Treat Discharge provider: Oswald Cantrell DO Summary Hospital Course Discharge Diagnosis: 1. Hospital associated pneumonia, present on admission and improving. 2. Hyponatremia, present on admission and active. H/O recent SIADH. 3. Acute hypoxic respiratory failure, present on admission and active. 4. Chronic pulmonary fibrosis, present on admission and active. 5. Aspergilloma (subacute), present on admission and active. 6. Diabetes mellitus 2, present on admission and active. Stable. 7. Prostate cancer with history of Lupron, present on admission and active. 8. Congestive heart failure, present on admission and stable. No evidence of volume overload. Hospital Course: This is an 88 year old male with recent admission for a R hip fracture whom was admitted for acute respiratory failure with hypoxia due to a likely hospital associated pneumonia. He improved with antibiotic therapy. Initially he was on cefepime and vancomycin. MRSA swab performed and was negative so MRSA coverage was removed. He was discharged to another SNF facility after family did not want him to return to prior facility, will complete another 4 days of augmentin for pneumonia there. Fluid restriction diet and salt tablets are recommended to continue for his chronic SIADH and hyponatremia. He was generally not requiring oxygen on the day of discharge, but was occasionally placed on supplemental therapy by staff. Goal oxygen should range between 89-96% if on supplemental therapy at SNF. No other changes were recommended to his home medications on discharge. Time Spent with Patient Time spent: Greater than 30 minutes Exam Vital Signs (past 8 hours): - 09/18/23 07:00 09/18/23 08:10 09/18/23 12:00 Temperature 97.4 F L 97.2 F L Pulse Rate 80 78 Respiratory Rate 19 20 Blood Pressure 154/95 H 142/82 H Pulse Oximetry 95 95 97 Oxygen Delivery Method Nasal Cannula Oxygen Flow Rate 2 1.5 1.5 Fraction of Inspired Oxygen 28 SaO2/FiO2 Ratio 346 Oxygen Delivery Method Nasal Cannula Oxygen Flow Rate 1.5 Narrative Exam Narrative: NAD, smiling. Lungs clear and with normal rate and effort. CV regular. Abdomen flat. No leg edema. Objective Labs 09/18/23 08:20 09/18/23 08:20 Labs: Laboratory Results - last 24 hr 09/17/23 09/18/23 15:25 08:20 WBC 10.7 RBC 3.19 L Hgb 9.0 L Hct 27.1 L MCV 85.0 MCH 28.1 MCHC 33.1 RDW 16.6 H Plt Count 470 H Neut % (Auto) 72.4 Lymph % (Auto) 17.8 L [place] % (Auto) 6.9 Eos % (Auto) 2.7 Baso % (Auto) 0.2 Neut # (Auto) 7700 H Lymph # (Auto) 1900 [place] # (Auto) 700 Eos # (Auto) 300 Baso # (Auto) 0 Sodium 131 L Potassium 3.8 Chloride 105 Carbon Dioxide 17 L BUN 19 Creatinine 0.72 Estimated GFR > 60 BUN/Creatinine Ratio 26.4 H Glucose 143 H Calcium 8.5 Total Bilirubin 0.6 AST TNP ALT 16 Alkaline Phosphatase 143 H Total Protein 6.3 Albumin 2.9 L Globulin 3.4 Albumin/Globulin Ratio 0.9 L Nasal Screen MRSA (PCR) Not detected [facility] Medical History (Updated 09/15/23 @ 07:01 by Feliz Zimmerman MD) DM II (diabetes mellitus, type II), controlled Hypertension Prostate cancer Aspergilloma Pulmonary fibrosis Fracture of femoral neck, right, closed Social History household members: spouse Smoking Status: Never smoker Discharge Plan Discharge Plan Patient Disposition: SNF Provider Discharge Comment: 88 year old male admitted with respiratory failure and pneumonia. He improved with antibiotic therapies. He does occasionally require oxygen, but predominant amount of the time his O2 saturations are okay on room air. Please keep O2 between 89-96% if on supplemental therapy. Will return to SNF for ongoing therapies after recent hip surgery. Discharge orders & Medications Prescriptions: New amoxicillin-pot clavulanate 875-125 mg tablet 1 tab PO BID 4 Days Qty: 8 0RF Continued latanoprost 0.005 % drops 1 drp EYE-BOTH ONCE PM prednisone 10 mg tablet 10 mg PO DAILY metformin 1,000 mg tablet 1,000 mg PO BID voriconazole 200 mg tablet 200 mg PO BID Eliquis 5 mg Tablet 5 mg PO BID Qty: 60 0RF acetaminophen 325 mg Tablet 650 mg PO Q6H PRN (Reason: Fever/Mild Pain (1-3)) Qty: 60 0RF polyethylene glycol 3350 17 gram Powder In Packet 17 gm PO DAILY Qty: 14 0RF magnesium hydroxide [Milk of Magnesia] 400 mg/5 mL Suspension 30 ml PO DAILY PRN (Reason: Constipation) Qty: 90 0RF benzonatate 100 mg Capsule 100 mg PO TID PRN (Reason: Cough) Qty: 20 0RF docusate sodium 100 mg Capsule 100 mg PO BID Qty: 14 0RF bisacodyl 5 mg Tablet,Delayed Release (Dr/Ec) 5 mg PO BID PRN (Reason: Constipation) Qty: 1 0RF sodium chloride 1,000 mg Tablet,Soluble 1,000 mg PO TIDWM Qty: 90 0RF Follow up/Referrals: Sierra Lira ARNP [Primary Care Provider] - Discharge Health Status Multidrug resistant organism: No MDRO Precautions: [place] Diet/Activity/Treatments Diet: Diet as Tolerated and Regular Liquid consistency: Normal/Thin Food texture: Regular Special Rehabilitation Services Reason for rehabilitation: Post-operative therapy and Recovery r/t decondition Rehab type: Physical therapy and Occupational therapy Visit Report/Discharge Packet Stand Alone Forms: Patient Portal/API Discharge Data Primary Care Provider: Sierra Lira Quality VTE Deep Vein Thrombosis/Pulmonary Embolism Present on Admission: No
[2023-09-18 14:50] LABS: Aspartate Aminotransferase 34 IU/L (17-59)
[2023-09-18 14:55] LABS: Aspartate Aminotransferase 23 IU/L (17-59)
[2023-09-18 15:26] LABS: Aspartate Aminotransferase 22 IU/L (17-59)
[2023-09-18 16:10] LABS: Aspartate Aminotransferase 26 IU/L (17-59)
--- NOTE | 2023-09-18 16:18 | PC.NURSE ---
Patient is A&OX3, NOME, slightly forgetful. He calls appropriately for assistance. He is SOB at rest and increasingly with movement but 02 saturations on 1.5 L 95%. He is able to participate with PT and use BSC, urinal with assistance. He has a good appetite today and supportive family. He is cleared for discharge this afternoon to [facility] in [place]. Transporter arrrived today at 3 pm to escort patient with W/Ch. He is transported with 02 tank by facility designee with all of his belongings and discharge packet. Report called to receiving nurse, Felecia.
== END 2023-09-18 15:10 | DRG 193 ==
LOC: ED 09-15 03:48 → AC 09-15 04:38
PROVIDERS: Hospitalist; Internal Medicine; Admitting Provider Internal Medicine; Emergency Provider Emergency Medicine; PCP Nurse Practitioner; Referring Provider Emergency Medicine; Visit Provider Internal Medicine
DX: J18.9 Pneumonia, unspecified organism (principal); J96.01 Acute respiratory failure with hypoxia; E87.1 Hypo-osmolality and hyponatremia; B44.9 Aspergillosis, unspecified; I50.9 Heart failure, unspecified; E11.9 Type 2 diabetes mellitus without complications; C61 Malignant neoplasm of prostate; J84.10 Pulmonary fibrosis, unspecified; Z79.01 Long term (current) use of anticoagulants; Z79.52 Long term (current) use of systemic steroids; Z79.84 Long term (current) use of oral hypoglycemic drugs
CPT/HCPCS: 36415; 71275; 80053; 80202; 81001; 82805; 82962; 83605; 83735; 83880; 84145; 84484; 85025; 87040; 87070; 87205; 87633; 87797; 94640; 94760; 96365; 96366; 96367; 96375; 97163; 97530; 99285; J0692; J1940; J7613; Q9967